=== PATIENT | female | born 1995 | race Caucasian/White ===

== ENCOUNTER 2019-12-26 21:48 | Emergency (ER) | payer BC, SELFPAY ==
--- NOTE | ~2019-12-26 | XR_ITS ---
EXAMINATION: XR chest 1V portable DATE: 12/26/2019 22:45 INDICATION: Cough, fever and shortness of breath TECHNIQUE: frontal view of the chest was obtained. COMPARISON: None FINDINGS: The lungs are clear with no focal airspace opacities, pulmonary edema, pleural effusion or pneumothor ax. The cardiomediastinal silhouette is normal. Visualized bones and soft tissues are unremarkable. IMPRESSION: 1. No acute cardiopulmonary disease. Reviewed, dictated and finalized at location A.
[2019-12-26 21:56] VITALS: BP 119/86; PULSE 95; RESP 18; TEMP 37.1; O2SAT 100
--- NOTE | 2019-12-26 21:58 | ED.FEVER ---
HPI - Fever General Chief Complaint: Fever Stated Complaint: FEVER, IM SICK, COUGH CP Time Seen by Provider: 12/26/19 21:55 History of Present Illness HPI Narrative: She reports cough, fever, SOB, chest pain, nausea, and bosyaches for a few days. Her father had similar symptoms last week and tested negative for COVID-19. Her mother is also here to be seen at this time. No known COVID-19 exposure. Related Data Home Medications Medication Instructions Recorded Confirmed fluticasone furoate-vilanterol INHALATION 12/26/19 12/26/19 [Breo Ellipta] levonorgestrel-ethinyl estrad tablet 12/26/19 [Kurvelo (28)] sertraline mg 12/26/19 Allergies Allergy/AdvReac Type Severity Reaction Status Date / Time No Known Allergies Allergy Verified 12/26/19 21:50 Review of Systems Review of Systems: All systems reviewed & are unremarkable except as noted in HPI and below Constitutional: Constitutional: Reports chills, Reports fatigue and Reports fever(s) ENT: Reports sore throat Cardiovascular: Cardiovascular: Reports chest pain Respiratory: Respiratory: Reports chest congestion, Reports cough and Reports dyspnea Gastrointestinal: Gastrointestinal: Reports diarrhea, Reports nausea and Denies vomiting Genitourinary: Genitourinary: Denies hematuria and Denies dysuria Musculoskeletal: Musculoskeletal: Reports myalgias Neurologic: Reports weakness PMFSH Past Medical History Medical History Anxiety Asthma Migraines Other prophylactic gland removal Social History Social History Smoking status: Former smoker Gender identity (if verbalized by the patient): Female Exam Const: General: healthy appearing, no acute distress and alert Orientation/consciousness: patient oriented x3 HENMT: Head: normal to inspection Throat: posterior oropharynx normal Neck: Neck: normal visual inspection and no lymphadenopathy Chest: Chest palpation & inspection: no tenderness Resp: Effort & Inspection: normal respiratory effort Auscultation: clear to auscultation bilaterally, no rales, no rhonchi and no wheezes Cardio: Jugular venous distension: no JVD Rate: regular rate Rhythm: regular rhythm Heart sounds: no murmurs GI: Inspection: non-distended GI Palp: Yes Soft to palpation and No Tenderness to palpation present (GI) Skin: General skin exam: normal color Neuro: General: patient oriented x3, moves all extremities and CN's II-XI intact bilaterally Speech: normal speech Extrem: General: no edema Psych: Appearance: well kempt Affect: Anxious affect present Course Vital Signs Vital signs: Vital Signs Temperature 37.1 C 12/26/19 21:56 Pulse Rate 95 12/26/19 21:56 Respiratory Rate 18 12/26/19 21:56 Blood Pressure 119/86 12/26/19 21:56 Pulse Oximetry 100 12/26/19 21:56 Temperature 37.1 C 12/26/19 21:56 Pulse Rate 85 12/26/19 23:44 Respiratory Rate 18 12/26/19 23:44 Blood Pressure 115/78 12/26/19 23:44 Pulse Oximetry 98 12/26/19 23:44 MDM - Fever MDM Narrative Medical decision making narrative: Vital signs stable. She likely has a viral URI. Could be COVID-19. Will test. No indication for hospitalisation at this time. Medical Records Attestation: I reviewed the patient's medical records. Lab Data Attestation: I reviewed the patient's lab results. Labs: Lab Results 12/26/19 Range/Units 22:28 SARS-CoV-2 RNA (RT-PCR) Positive A Imaging Data Radiologist's impression: ITS Impressions Chest X-Ray 12/27/19 08:26 IMPRESSION: 1. No acute cardiopulmonary disease. Discharge Plan Discharge Clinical Impression: URI (upper respiratory infection) Patient Disposition: Home, Self-Care Condition: Stable Instructions: Upper Respiratory Infection (ED) Prescriptions: New ondansetron HCl [Zofran] 4 mg tablet 4 mg PO
[2019-12-26 22:04] VITALS: RESP 18
[2019-12-26] MEDS: ONDANSETRON HCL ODT 4 MG TABLET PO (23:09)
[2019-12-26] MEDS: IBUPROFEN 600 MG TABLET PO (23:09)
[2019-12-26 23:44] VITALS: BP 115/78; PULSE 85; RESP 18; O2SAT 98
[2019-12-27 12:13] LABS: SARS-CoV-2 RNA PCR Positive
== END 2019-12-26 23:47 | disposition home or self-care (01) ==
PROVIDERS: Emergency Provider Emergency Medicine
DX: U07.1 COVID-19 (principal); J06.9 Acute upper respiratory infection, unspecified; F41.9 Anxiety disorder, unspecified; J45.909 Unspecified asthma, uncomplicated; Z87.891 Personal history of nicotine dependence
CPT/HCPCS: 71045; 87081; 87635; 87880; 99283; A9270; C9803; U0003

== ENCOUNTER 2020-02-25 13:07 | Emergency (ER) | payer OTHER, MEDICAID, SELFPAY ==
[2020-02-25] VITALS (17 sets, daily range): BP systolic 96–118; BP diastolic 64–74; PULSE 78–107; RESP 13–27; TEMP 36.3; O2SAT 94–100
--- NOTE | ~2020-02-25 | CT_ITS ---
EXAMINATION: CT brain wo con DATE: 02/25/2020 16:23 INDICATION: Syncope. Headache. Head injury. TECHNIQUE: Computed tomography (CT) of the head was performed without intravenous contrast. The mA wa s adjusted according to patient size. Iterative reconstruction technique was employed. The dose-lengt h product was 529.67 mGy-cm. COMPARISON: None FINDINGS: There is no intracranial hemorrhage, acute infarction, or abnormal intracranial mass lesion . The ventricles are normal in size. The mastoid air cells are normal. IMPRESSION: 1. Normal brain. Reviewed, dictated and finalized at location B. IMPRESSION: 1. Normal brain.
--- NOTE | ~2020-02-25 | XR_ITS ---
EXAMINATION: XR chest 1V portable DATE: 02/25/2020 14:38 INDICATION: Shortness of breath. Syncope. TECHNIQUE: A single frontal view of the chest was obtained. COMPARISON: Chest single view 12/27/2019 FINDINGS: The chest demonstrates clear lungs without pneumonia, pleural effusion, or pneumothorax. Th e heart size is normal. IMPRESSION: 1. No acute cardiopulmonary disease. Reviewed, dictated and finalized at location B.
--- NOTE | 2020-02-25 13:13 | ECG_ITS ---
Measurements Intervals [place] Rate: 85 P: 63 AK: 132 QRS: 61 QRSD: 84 T: 33 QT: 348 QTc: 416 Interpretive Statements SINUS RHYTHM NORMAL ECG Electronically Signed On 02-25-2020 13:30:55 CDT by Donovan Kahn D.O.
[2020-02-25 13:33] LABS: Basophils Absolute Auto 0.1 K/mm3 (0.0-0.1); Basophils Percent Auto 0.6 % (0.2-1.2); Eosinophils Absolute Auto 0.2 K/mm3 (0-0.3); Eosinophils Percent Auto 1.8 % (0-4.4); Hematocrit 45.1 % (37.0-47.0); Hemoglobin 15.4 g/dL (12.0-15.0); Immature Granulocyte Absolute 0.05 K/mm3 (0.00-0.031); Immature Granulocyte Percent A 0.4 % (0-0.5); Lymphocytes Percent Auto 17.5 % (18.3-44.2); Mean Corpuscular HGB Conc 34.1 g/dl (32-36); Mean Corpuscular Hemoglobin 31.2 pg (26-34); Mean Corpuscular Volume 91.5 fl (80-100); Mean Platelet Volume 10.8 fl (7.4-10.4); Monocytes Absolute Auto 0.7 K/mm3 (0.1-0.6); Neutrophils Absolute Auto 8.8 K/mm3 (1.3-6.7); Neutrophils Percent Auto 73.7 % (45.5-73.1); Platelet Count Result 288 k/mm3 (150-375); Red Blood Count 4.93 M/mm3 (4.2-5.4); Red Cell Distribution Width 12.8 % (11.5-14.5)
[2020-02-25 13:45] LABS: Potassium 4.1 mmol/L (3.4-5.0)
[2020-02-25 13:49] LABS: Anion Gap 9 mmol/L (8-16); Blood Urea Nitrogen 14 mg/dL (7-17); Calcium 9.4 mg/dL (8.4-10.2); Carbon Dioxide 25 mmol/L (22-30); Chloride 104 mmol/L (98-107); Estimated CRCL calculation 119 ml/min; Estimated Glomerular Filt Rate > 60; Glucose 106 mg/dL (65-105); Sodium 138 mmol/L (137-145)
--- NOTE | 2020-02-25 14:27 | ED.SYNCOPE ---
HPI - Syncope General Chief Complaint: Syncope Stated Complaint: SYNCOPAL EPISODE Time Seen by Provider: 02/25/20 13:27 Source: patient and family Mode of arrival: ambulatory Limitations: no limitations History of Present Illness HPI narrative: This patient is a 24 year old female who presents for evaluation of syncopal episode. Patient states she was making food when she developed dizziness. Shortly after she reports nausea so she sat down. She continue to have dizziness and nausea so she went to the restroom. She states she fell over and passed out. She woke up with yellow emesis in the toilet . She called her family. She states she continue to have some dizziness an tunnel vision when ever she would try to stand up. She denies history syncopal episodes. She denies diarrhea, chest pain, abdominal pain. She was diagnosed with COVID 6 weeks ago and reports worsening sob over the past couple of weeks. She reports mild headache that is slowing resolving now. Related Data Home Medications Medication Instructions Recorded Confirmed fluticasone furoate-vilanterol INHALATION 12/26/19 12/26/19 [Breo Ellipta] sertraline mg 12/26/19 Allergies Allergy/AdvReac Type Severity Reaction Status Date / Time No Known Allergies Allergy Verified 02/25/20 13:09 Review of Systems Review of Systems: All systems reviewed & are unremarkable except as noted in HPI and below Constitutional: Constitutional: Denies chills and Denies fever(s) Eyes: Eyes: Reports change in vision (tunnel vision) ENT: Reports dizziness Cardiovascular: Cardiovascular: Denies chest pain and Denies rapid heart rate Respiratory: Respiratory: Denies cough and Reports dyspnea Gastrointestinal: Gastrointestinal: Denies abdominal pain, Denies diarrhea, Reports nausea and Reports vomiting Neurologic: Reports syncope and Reports headache(s) [facility] Past Medical History Medical History (Updated 02/25/20 @ 16:44 by Rosa Elena Aaron MD) Anxiety Asthma Migraines Other prophylactic gland removal Social History Social History Smoking status: Former smoker Gender identity (if verbalized by the patient): Female Exam Narrative: Exam Narrative: GENERAL: Well-appearing, well-nourished, and in no acute distress. HEAD: Normocephalic, atraumatic EYES: PERRLA and EOMI, conjunctiva clear without discharge EARS: TM's clear bilaterally without erythema or dullness NOSE: Nares clear, no rhinorrhea or epistaxis THROAT:Mucous membranes moist, Oropharynx normal without erythema, exudate, peritonsillar swelling or fluctuance NECK: Supple, without lymphadenopathy or mass RESPIRATORY: No respiratory distress, Airway patent, Respirations non-labored, Clear to auscultation without rales, rhonchi or wheeze HEART: Regular rate and rhythm. No murmur heard. Normal peripheral pulses. ABDOMEN: Soft, nontender, nondistended, normal active bowel sounds. No masses. No rebound or guarding, No organomegaly. EXTREMITIES: No edema, normal strength with full range of motion. SKIN: Warm, dry, normal color without rash NEURO: Alert and oriented x3. CN 2-12 grossly intact. No focal deficits. PSYCH: Normal mood and affect. Course Reevaluation(s) Reevaluation #1: I have discussed with patient that no acute findings found. She reports dizziness and nausea have resolved. She likely had vasovagal syncope. Date: 02/25/20 Time: 16:42 Vital Signs Vital signs: Vital Signs Temperature 97.4 F L 02/25/20 13:10 Pulse Rate 96 02/25/20 13:10 Respiratory Rate 18 02/25/20 13:10 Blood Pressure 118/64 02/25/20 13:10 Pulse Oximetry 100 02/25/20 13:10 Temperature 97.4 F L 02/25/20 13:10 Pulse Rate 79 02/25/20 16:43 Respiratory Rate 14 02/25/20 16:43 Blood Pressure 105/72 02/25/20 16:43 Pulse Oximetry 94 02/25/20 16:43 MDM - Syncope Lab Data Attestation: I reviewed the patient's lab r
[2020-02-25] MEDS: ONDANSETRON INJ 4 MG/2 ML VIAL IV PUSH (14:47)
[2020-02-25] MEDS: LACTATED RINGERS 1,000 ML 999 ML IV CONT (14:48)
[2020-02-25 14:58] LABS: Add Urine Microscopic? YES; Appearance Urine Cloudy (Clear); Bacteria Urine Trace /hpf; Bilirubin Urine Negative (Negative); Blood Urine 1+ (Negative); Color Urine Yellow (Yellow); Glucose Urine UA Negative (Negative); Ketones Urine Negative (Negative); Leukocyte Esterase Ur Negative LEU/UL (Negative); Mucus Urine Moderate /lpf; Nitrate Urine Negative (Negative); Protein Urine 1+ mg/dL (Negative); RBC Urine 0-2 /hpf (0-2); Specific Grav Ur 1.023 (1.001-1.035); Squamous Epithelial Cell Urine Moderate /hpf (Few); Urobilinogen Urine Negative mg/dL (<2.0); WBC Urine 0-3 /hpf
[2020-02-25 15:23] LABS: Magnesium 1.9 mg/dL (1.6-2.3)
[2020-02-25 15:24] LABS: D Dimer 0.27 ug/mL (<0.48)
[2020-02-25 15:34] LABS: Troponin I < 0.012 ng/mL (0.000-0.034)
== END 2020-02-25 17:12 | disposition home or self-care (01) ==
PROVIDERS: Family Medicine; Emergency Provider General Practice; PCP Physician Assistant
DX: R55 Syncope and collapse (principal); S09.90XA Unspecified injury of head, initial encounter; F41.9 Anxiety disorder, unspecified; J45.909 Unspecified asthma, uncomplicated; Z87.891 Personal history of nicotine dependence; X58.XXXA Exposure to other specified factors, initial encounter; Z86.19 Personal history of other infectious and parasitic diseases
CPT/HCPCS: 36415; 70450; 71045; 80048; 81001; 81025; 83735; 84484; 85025; 85380; 93005; 96361; 96374; 99284; J2405; J7120

== ENCOUNTER 2021-09-25 13:07 | Emergency (ER) | payer OTHER, MEDICAID, SELFPAY ==
[2021-09-25 13:09] VITALS: BP 111/74; PULSE 89; RESP 16; TEMP 36.6; O2SAT 99
[2021-09-25] MEDS: diphenhydrAMINE HCl INJ 50 MG/ML VIAL 25 MG IV PUSH (14:08)
[2021-09-25] MEDS: SODIUM CHLORIDE 0.9% IV 1,000 ML 999 ML IV CONT (14:09)
--- NOTE | 2021-09-25 14:10 | ED.HA ---
HPI - Headache General Chief Complaint: Headache <DAYANA Alcaraz Last Filed: 09/25/21 17:27> Stated Complaint: migraine <DAYANA Alcaraz Last Filed: 09/25/21 17:27> Time Seen by Provider: 09/25/21 13:14 <DAYANA Alcaraz Last Filed: 09/25/21 17:27> History of Present Illness HPI Narrative: Patient is a 26-year-old female with a history of migraine headaches who presents emergency department for her typical migraine headache over the past 2 days. Patient states the headache came on gradually as a tension headache, and has developed now into her usual migraine. The pain became worse today, which prompted ED visit. She states it is present over her left oriental orthodox, is pulsatile in nature, and is associated with some blurry vision on the left eye and nausea but no vomiting. She denies any new symptoms for her. The headache is worse with light. She tried Bubital without relief of her symptoms. No head injury, loss of consciousness, slurred speech, facial droop, fevers. <DAYANA Alcaraz Last Filed: 09/25/21 17:27> Related Data Home Medications: Home Medications Medication Instructions Recorded Confirmed fluticasone furoate-vilanterol INHALATION 12/26/19 12/26/19 [Breo Ellipta] sertraline mg 12/26/19 <DAYANA Alcaraz Last Filed: 09/25/21 17:27> Allergies/Adverse Reactions: Allergies Allergy/AdvReac Type Severity Reaction Status Date / Time No Known Allergies Allergy Verified 02/25/20 13:09 <DAYANA Alcaraz Last Filed: 09/25/21 17:27> Review of Systems Review of Systems: Gen: Denies fevers or chills Eyes: Reports blurry vision on the left. ENT: Denies congestion Respiratory: Denies shortness of breath or cough CV: Denies chest pain or palpitations GI: Denies abdominal pain nausea, emesis or diarrhea denies burning, urgency, frequency or hematuria Musculoskeletal: Denies back pain or muscle pain Neuro: Reports headache. Denies numbness, tingling, weakness or focal weakness Skin: Denies rash Except as documented, all other systems reviewed and negative <Molly Rosado PA-C - Last Filed: 09/25/21 17:27> All systems reviewed & are unremarkable except as noted in HPI and below <Molly Rosado PA-C - Last Filed: 09/25/21 17:27> [facility] Past Medical History Medical History: Medical History (Updated 09/25/21 @ 14:51 by Molly Rosado PA-C) Anxiety Asthma Migraines Other prophylactic gland removal <Molly Rosado PA-C - Last Filed: 09/25/21 17:27> Social History Social History: Social History Smoking status: Former smoker Gender identity (if verbalized by the patient): Female <Molly Rosado PA-C - Last Filed: 09/25/21 17:27> Exam Narrative: APPEARANCE: Uncomfortable appearing, resting in a dark room. Head: normocephalic and atraumatic. EYES: PERRLA/EOMI, conjunctivae clear NOSE: No nasal drainage EARS: External ear normal in appearance THROAT: Oropharynx is clear. Mucous membranes are moist. NECK: Supple. No adenopathy, no masses. RESPIRATORY: Airway patent, respirations nonlabored. Clear to auscultation bilaterally, no rales, rhonchi, wheezing. CARDIOVASCULAR: Regular rate and rhythm without murmurs, rubs, or gallops. ABDOMINAL: Normoactive bowel sounds. Soft, nontender, nondistended. No rebound tenderness or guarding. MUSCULOSKELETAL: Extremities are warm and well-perfused. Moves all extremities well. No edema. NEURO: Cranial nerves II through XII intact. Normal speech. No focal neurologic deficits. [place]-at-jpmo normal, kgty-of-ubxs normal. SKIN: Skin is warm and dry. No rashes. PSYCHIATRIC: Normal affect/mood. <Molly Rosado PA-C - Last Filed: 09/25/21 17:27> Course INDIVIDUAL PENSION CONSULTANT/PA Physician Supervision I did not see this patient nor was the care plan discussed
[2021-09-25] MEDS: PROCHLORPERAZINE EDISYLATE 10 MG/2 ML VIAL IV PUSH (14:11)
[2021-09-25 15:13] VITALS: BP 114/72; PULSE 87; RESP 18; O2SAT 99
== END 2021-09-25 15:14 | disposition home or self-care (01) ==
PROVIDERS: Emergency Provider Emergency Medicine
DX: G43.909 Migraine, unspecified, not intractable, without status migrainosus (principal); J45.909 Unspecified asthma, uncomplicated; F41.9 Anxiety disorder, unspecified; Z87.891 Personal history of nicotine dependence
CPT/HCPCS: 96361; 96374; 96375; 99284; J0780; J1200; J7030

== ENCOUNTER 2022-01-07 11:19 | Emergency (ER) | payer OTHER, MEDICAID, SELFPAY ==
--- NOTE | ~2022-01-07 | CT_ITS ---
EXAMINATION: CT abdomen pelvis w con DATE: 01/07/2022 13:55 INDICATION: Abdominal pain TECHNIQUE: Computed tomography (CT) of the abdomen and pelvis was performed with 100 mL Omnipaque-300 intravenous contrast. Automated exposure control and iterative reconstruction technique were employe d. The dose-length product was 541.31 mGy-cm. COMPARISON: None FINDINGS: Lung bases are clear. Visualized inferior heart is normal. No pericardial or pleural effusion. Liver, gallbladder, spleen, pancreas, bilateral adrenal glands and kidneys are normal. Bowels including the appendix are normal. Bladder, anteverted uterus and bilateral adnexa are unremarkable. Ring shaped p essary in the vaginal vault. No free intraperitoneal gas or fluid. No pathologically enlarged abdomin al or pelvic lymphadenopathy. Mild thoracolumbar dextrocurvature with mild spondylosis. IMPRESSION: 1. No acute intra-abdominal/pelvic process. Reviewed, dictated and finalized at location A.
[2022-01-07 11:33] VITALS: BP 125/82; PULSE 97; RESP 16; TEMP 36.9; O2SAT 99
[2022-01-07 12:16] LABS: Appearance Urine Cloudy (Clear); Bilirubin Urine Negative (Negative); Blood Urine 3+ (Negative); Color Urine Yellow (Yellow); Glucose Urine UA Negative (Negative); Ketones Urine Negative (Negative); Leukocyte Esterase Ur 1+ LEU/UL (Negative); Nitrate Urine Positive (Negative); Protein Urine 1+ mg/dL (Negative); Specific Grav Ur 1.025 (1.001-1.035); Urobilinogen Urine 0.2 mg/dL (<2.0); pH Urine 5.5 (5.0-9.0)
[2022-01-07 12:20] LABS: Add Urine Microscopic? YES; Bacteria Urine Trace /hpf; Mucus Urine Rare /lpf; RBC Urine >75 /hpf (0-2); Squamous Epithelial Cell Urine Many /hpf (Few); WBC Clumps Urine Present /HPF; WBC Urine >75 /hpf
[2022-01-07 12:52] LABS: Basophils Absolute Auto 0.1 K/mm3 (0.0-0.1); Basophils Percent Auto 0.6 % (0.2-1.2); Eosinophils Absolute Auto 0.3 K/mm3 (0-0.3); Eosinophils Percent Auto 2.3 % (0-4.4); Hemoglobin 15.5 g/dL (12.0-15.0); Immature Granulocyte Absolute 0.05 K/mm3 (0.00-0.031); Immature Granulocyte Percent A 0.4 % (0-0.5); Lymphocytes Absolute Auto 2.75 K/mm3 (0.9-3.2); Lymphocytes Percent Auto 19.9 % (18.3-44.2); Mean Corpuscular HGB Conc 33.7 g/dl (32-36); Mean Corpuscular Hemoglobin 30.9 pg (26-34); Mean Corpuscular Volume 91.8 fl (80-100); Mean Platelet Volume 10.2 fl (7.4-10.4); Monocytes Absolute Auto 0.9 K/mm3 (0.1-0.6); Monocytes Percent Auto 6.2 % (2.6-8.5); Neutrophils Absolute Auto 9.8 K/mm3 (1.3-6.7); Neutrophils Percent Auto 70.6 % (45.5-73.1); Platelet Count Result 319 k/mm3 (150-375); Red Blood Count 5.01 M/mm3 (4.2-5.4); Red Cell Distribution Width 13.2 % (11.5-14.5); White Blood Count 13.9 K/mm3 (4.5-10.0)
[2022-01-07 13:00] LABS: Alanine Aminotransferase 24 U/L (6-35); Albumin Level 4.3 g/dL (3.5-5.1); Alkaline Phosphatase 77 U/L (38-126); Anion Gap 9 mmol/L (8-16); Aspartate Amino Transferase 22 U/L (14-36); Bilirubin,Total 0.5 mg/dL (0.2-1.3); Blood Urea Nitrogen 15 mg/dL (7-17); Calcium 9.1 mg/dL (8.4-10.2); Carbon Dioxide 26 mmol/L (22-30); Chloride 102 mmol/L (98-107); Estimated CRCL calculation 82 ml/min; Estimated Glomerular Filt Rate > 60; Glucose 87 mg/dL (65-110); Lipase 74 U/L (23-300); Potassium 3.8 mmol/L (3.4-5.0); Sodium 137 mmol/L (137-145)
[2022-01-07] MEDS: KETOROLAC 30 MG/ML VIAL (*BKC) IV PUSH (13:37)
[2022-01-07] MEDS: ONDANSETRON INJ 4 MG/2 ML VIAL IV PUSH (13:37)
[2022-01-07] MEDS: SODIUM CHLORIDE 0.9% IV 1,000 ML 999 ML IV CONT (14:06)
--- NOTE | 2022-01-07 14:39 | ED.GENADULT ---
HPI - General Adult General Chief complaint: Back Pain/Injury Stated complaint: back, abd pain Time Seen by Provider: 01/07/22 11:54 Source: RN notes reviewed History of Present Illness HPI narrative: Patient presents emergency department from home for abdominal pain. Patient states that symptoms began this morning states she has pain in the lower abdomen that radiates to the right flank pain is described as sharp and stabbing in nature states is associated with dysuria she denies any fevers or chills does note that she has nausea but denies any vomiting or diarrhea. States she has not taking thing for the symptoms today Related Data Home Medications Medication Instructions Recorded Confirmed fluticasone furoate 200 inhalation 12/26/19 12/26/19 mcg-vilanterol 25 mcg/dose inhalation powder (Breo Ellipta) sertraline 100 mg tablet mg 12/26/19 Allergies Allergy/AdvReac Type Severity Reaction Status Date / Time No Known Allergies Allergy Verified 02/25/20 13:09 Review of Systems Review of Systems: Gen.: Denies fevers or chills ENT: Denies congestion Respiratory: Denies shortness of breath or cough CV: Denies chest pain or palpitations GI: see HPI reports dysuria Musculoskeletal: Denies back pain or muscle pain Neuro: Denies numbness, tingling, weakness or focal weakness Skin: Denies rash Except as documented, all other systems reviewed and negative [facility] Past Medical History Medical History (Updated 01/07/22 @ 14:42 by Jose Gonzalez DO) Anxiety Asthma Migraines Other prophylactic gland removal Social History Social History Smoking status: Former smoker Gender identity (if verbalized by the patient): Female Exam Narrative: APPEARANCE: No acute distress, nontoxic, resting in bed HEENT: Normocephalic, atraumatic, OMM RESPIRATORY: No respiratory distress, clear to auscultation bilaterally with no rhonchi wheezing or rales CARDIOVASCULAR: RRR s murmur ABDOMINAL: Soft nondistended tender to palpation in right lower quadrant and left lower quadrant no tenderness right upper quadrant and left upper quadrant no rebound or guarding, right flank tenderness MUSCULOSKELETAl: Moves all extremities. No clubbing, cyanosis or edema. NEURO: Awake and alert. Following commands, speech normal, no focal deficits SKIN:: Warm, dry. Normal Color PSYCHIATRIC: Normal affect/mood Course Course Emergency Course: Patient states that they are feeling much better at this time. States abdominal pain has resolved. Repeat abdominal exam shows the patient's abdomen to be soft and nontender. Discussed with patient results of workup and diagnosis. Discussed need for follow-up with primary care physician, reasons to return to the emergency department in proper use of medication. Patient understands and agrees to current treatment plan Vital Signs Vital signs: Vital Signs Temperature 98.5 F 01/07/22 11:33 Pulse Rate 97 01/07/22 11:33 Respiratory Rate 16 01/07/22 11:33 Blood Pressure 125/82 01/07/22 11:33 Pulse Oximetry 99 01/07/22 11:33 Oxygen Delivery Room Air 01/07/22 11:33 Temperature 98.5 F 01/07/22 11:33 Pulse Rate 97 01/07/22 11:33 Respiratory Rate 16 01/07/22 11:33 Blood Pressure 125/82 01/07/22 11:33 Pulse Oximetry 99 01/07/22 11:33 Oxygen Delivery Room Air 01/07/22 11:33 Medical Decision Making MDM Narrative Medical decision making narrative: Patient's abdomen is soft without significant pain or signs of surgical abdomen on serial exams. Lab and x-ray evaluations are reviewed and patient is felt to be a reasonable candidate for outpatient management. Patient was instructed as to limitations of x-ray and laboratory evaluation and encouraged to return to ED or primary physician for repeat exam in 12 hours if continued or worsening pain Vital Signs Vital Signs: Vital Signs Temperature 98.5 F 01/07/22 11:3
[2022-01-07 15:07] VITALS: BP 126/88; PULSE 83; RESP 16; O2SAT 98
== END 2022-01-07 15:08 | disposition home or self-care (01) ==
PROVIDERS: Emergency Provider Emergency Medicine; PCP Physician Assistant
DX: N39.0 Urinary tract infection, site not specified (principal); R10.30 Lower abdominal pain, unspecified; F41.9 Anxiety disorder, unspecified; J45.909 Unspecified asthma, uncomplicated
CPT/HCPCS: 36415; 74177; 80053; 81001; 81025; 83690; 85025; 87077; 87086; 87186; 96374; 96375; 99284; J0696; J1885; J2405; J7030; Q9967

== ENCOUNTER 2022-01-16 19:57 | Emergency (ER) | payer OTHER, MEDICAID, SELFPAY ==
--- NOTE | ~2022-01-16 | CT_ITS ---
EXAMINATION: CT abdomen pelvis w con DATE: 01/16/2022 22:52 INDICATION: RLQ pain TECHNIQUE: Computed tomography (CT) of the abdomen and pelvis was performed with 100 mL Omnipaque-350 intravenous contrast. Automated exposure control and iterative reconstruction technique were employe d. The dose-length product was 521.21 mGy-cm. COMPARISON: 01/07/2022. FINDINGS: Lower thorax: Mild left basilar scarring and bilateral dependent atelectasis. Liver: Normal. Biliary/Gallbladder: Partially collapsed. No bile duct dilation. Pancreas: No mass or duct dilation. Spleen: Normal. Adrenals:No mass. Kidneys: No suspicious mass, stone, or hydronephrosis. Subcentimeter left midpole hypodensity, too sm all to characterize but most likely represent cysts GI tract: Mild distal esophageal and gastric wall edema as can be seen with esophagitis/gastritis. No small or large bowel dilation. Normal appendix. Mesentery/Peritoneum: No ascites, mass, or free air. Retroperitoneum: No mass. Pelvis: Pelvic organs are within normal limits. Soft Tissues: Soft tissues and body wall unremarkable. Bones: No acute osseous finding. IMPRESSION: No acute abdominopelvic process. Reviewed, dictated and finalized at location K.
[2022-01-16 19:59] VITALS: BP 126/82; PULSE 106; RESP 16; TEMP 36.1; O2SAT 100
[2022-01-16 20:14] LABS: Basophils Absolute Auto 0.1 K/mm3 (0.0-0.1); Basophils Percent Auto 1.1 % (0.2-1.2); Eosinophils Absolute Auto 0.5 K/mm3 (0-0.3); Eosinophils Percent Auto 5.2 % (0-4.4); Hematocrit 46.8 % (37.0-47.0); Hemoglobin 15.6 g/dL (12.0-15.0); Immature Granulocyte Absolute 0.03 K/mm3 (0.00-0.031); Immature Granulocyte Percent A 0.3 % (0-0.5); Lymphocytes Absolute Auto 2.82 K/mm3 (0.9-3.2); Lymphocytes Percent Auto 29.9 % (18.3-44.2); Mean Corpuscular HGB Conc 33.3 g/dl (32-36); Mean Corpuscular Hemoglobin 30.4 pg (26-34); Mean Corpuscular Volume 91.1 fl (80-100); Mean Platelet Volume 9.8 fl (7.4-10.4); Monocytes Absolute Auto 1.1 K/mm3 (0.1-0.6); Monocytes Percent Auto 11.6 % (2.6-8.5); Neutrophils Absolute Auto 4.9 K/mm3 (1.3-6.7); Neutrophils Percent Auto 51.9 % (45.5-73.1); Platelet Count Result 328 k/mm3 (150-375); Red Blood Count 5.14 M/mm3 (4.2-5.4); Red Cell Distribution Width 13.1 % (11.5-14.5); White Blood Count 9.4 K/mm3 (4.5-10.0)
[2022-01-16 20:23] LABS: Alanine Aminotransferase 27 U/L (6-35); Albumin Level 4.2 g/dL (3.5-5.1); Alkaline Phosphatase 81 U/L (38-126); Anion Gap 6 mmol/L (8-16); Aspartate Amino Transferase 26 U/L (14-36); Bilirubin,Total 0.3 mg/dL (0.2-1.3); Blood Urea Nitrogen 11 mg/dL (7-17); Calcium 8.8 mg/dL (8.4-10.2); Carbon Dioxide 23 mmol/L (22-30); Chloride 103 mmol/L (98-107); Estimated CRCL calculation 82 ml/min; Estimated Glomerular Filt Rate > 60; Glucose 94 mg/dL (65-110); Lipase 100 U/L (23-300); Potassium 3.7 mmol/L (3.4-5.0); Sodium 132 mmol/L (137-145)
[2022-01-16 22:39] LABS: Appearance Urine Slightly Cloudy (Clear); Bilirubin Urine 1+ (Negative); Blood Urine Trace-lysed (Negative); Glucose Urine UA Negative (Negative); Ketones Urine Negative (Negative); Leukocyte Esterase Ur Negative LEU/UL (Negative); Nitrate Urine Negative (Negative); Protein Urine Negative (Negative); Specific Grav Ur >= 1.030 (1.001-1.035)
[2022-01-16 22:43] LABS: Bacteria Urine Trace /hpf; Mucus Urine Few /lpf; Squamous Epithelial Cell Urine Many /hpf (Few); WBC Urine 0-3 /hpf
[2022-01-16 22:44] LABS: Add Urine Microscopic? YES; Color Urine Dark Yellow (Yellow)
--- NOTE | 2022-01-16 23:47 | ED.ABDPAIN ---
HPI - Abdominal Pain General Chief Complaint: Abdominal Pain Stated Complaint: ABD pain, GI bleed Time Seen by Provider: 01/16/22 21:23 History of Present Illness HPI narrative: Patient is a 26-year-old female who presents ER with periumbilical pain. Ongoing of the last 24 hours. Colicky in nature. Worse with eating. Better with rest. Reports she has had 3 episodes of diarrhea over the last 24 hours. She has had some bright red blood in it. She also reports vomiting earlier this evening where she vomited three quarter sized pieces of blood. No fevers or chills or sweats. She is not on blood thinners. Related Data Home Medications Medication Instructions Recorded Confirmed fluticasone furoate 200 inhalation 12/26/19 12/26/19 mcg-vilanterol 25 mcg/dose inhalation powder (Breo Ellipta) sertraline 100 mg tablet mg 12/26/19 Allergies Allergy/AdvReac Type Severity Reaction Status Date / Time No Known Allergies Allergy Verified 01/16/22 21:30 Review of Systems Review of Systems: All systems reviewed & are unremarkable except as noted in HPI and below Constitutional: Constitutional: Denies chills, Denies fatigue and Denies fever(s) Cardiovascular: Cardiovascular: Denies chest pain Respiratory: Respiratory: Denies cough and Denies dyspnea Gastrointestinal: Gastrointestinal: Reports abdominal pain, Reports diarrhea, Reports nausea and Reports vomiting Genitourinary: Genitourinary: Denies nocturia and Denies dysuria PMFSH Past Medical History Medical History (Updated 01/16/22 @ 23:49 by David Frausto MD) Anxiety Asthma Migraines Other prophylactic gland removal Social History Social History Smoking status: Former smoker Gender identity (if verbalized by the patient): Female Exam Narrative: GENERAL: Well-appearing, well-nourished, and in no acute distress. HEAD: Normocephalic, atraumatic. EYES: EOMI. CHEST: Clear to auscultation. No respiratory distress. HEART: Regular rate and rhythm. Normal peripheral pulses. ABDOMEN: Soft, patient reports right lower quadrant pain but no rebound or guarding nondistended. Normal-appearing rectum. Digital rectal exam reveals pink blood that is guaiac positive. EXTREMITIES: Normal range of motion. No edema. SKIN: Warm, dry, no rash. NEURO: Alert and oriented x3. PSYCH: Normal mood and affect. Course Course Emergency Course: Patient reports she thinks she had a bad salad before symptom onset. Patient may have had some colitis causing some bleeding. She does have gastritis on her imaging study. She will be started on Protonix twice daily. Recommend follow-up with PCP and GI and patient verbalized understanding. No hypertension. Hemoglobin stable. Patient has been on 10 days of Bactrim which could be irritating her stomach. Vital Signs Vital signs: Vital Signs Temperature 97.0 F L 01/16/22 19:59 Pulse Rate 106 H 01/16/22 19:59 Respiratory Rate 16 01/16/22 19:59 Blood Pressure 126/82 01/16/22 19:59 Pulse Oximetry 100 01/16/22 19:59 Temperature 97.0 F L 01/16/22 19:59 Pulse Rate 106 H 01/16/22 19:59 Respiratory Rate 16 01/16/22 19:59 Blood Pressure 126/82 01/16/22 19:59 Pulse Oximetry 100 01/16/22 19:59 MDM - Abdominal Pain Lab Data Result diagrams: 01/16/22 20:07 01/16/22 20:07 Labs: Lab Results 01/16/22 01/16/22 01/16/22 Range/Units 20:07 20:07 22:32 WBC 9.4 (4.5-10.0) K/mm3 RBC 5.14 (4.2-5.4) M/mm3 Hgb 15.6 H (12.0-15.0) g/dL Hct 46.8 (37.0-47.0) % MCV 91.1 (80-100) fl MCH 30.4 (26-34) pg MCHC 33.3 (32-36) g/dl RDW 13.1 (11.5-14.5) % Plt Count 328 (150-375) k/mm3 MPV 9.8 (7.4-10.4) fl Immature Gran % (Auto) 0.3 (0-0.5) % Neut % (Auto) 51.9 (45.5-73.1) % Lymph % (Auto) 29.9 (18.3-44.2) % [place] % (Auto) 11.6 H (2.6-8.5) % Eos % (Auto
[2022-01-16] MEDS: PANTOPRAZOLE SODIUM IV 40 MG VIAL IV PUSH (23:54)
[2022-01-16] MEDS: DICYCLOMINE HCL 10 MG CAPSULE 20 MG PO (23:54)
[2022-01-17 00:15] VITALS: PULSE 94; RESP 16; O2SAT 98
== END 2022-01-17 00:18 | disposition home or self-care (01) ==
PROVIDERS: Emergency Medicine; Emergency Provider Emergency Medicine; PCP Physician Assistant
DX: K29.70 Gastritis, unspecified, without bleeding (principal); K62.5 Hemorrhage of anus and rectum; J45.909 Unspecified asthma, uncomplicated; F41.9 Anxiety disorder, unspecified; Z87.891 Personal history of nicotine dependence
CPT/HCPCS: 36415; 74177; 80053; 81001; 81025; 83690; 85025; 96374; 99284; A9270; C9113; Q9967

== ENCOUNTER 2022-06-15 13:39 | Emergency (ER) | payer MEDICAID, SELFPAY ==
[2022-06-15 13:58] VITALS: BP 118/86; PULSE 83; RESP 16; TEMP 36.8; O2SAT 99
--- NOTE | 2022-06-15 14:21 | ED.EAR ---
HPI - Ear Problem General Chief complaint: Ear Stated complaint: rt ear inf Time Seen by Provider: 06/15/22 14:21 Source: patient, RN notes reviewed and old records reviewed Mode of arrival: ambulatory Limitations: no limitations History of Present Illness HPI Narrative: 27-year-old female presents to the [facility] with complaints of right ear pain. Recently diagnosed with a sinus infection and was on amoxicillin Has been using Q-tips to clean out her ear. Related Data Home Medications Medication Instructions Recorded Confirmed fluticasone furoate 200 1 inh inhalation DAILY 12/26/19 06/15/22 mcg-vilanterol 25 mcg/dose inhalation powder (Breo Ellipta) sertraline 100 mg tablet 100 mg PO DAILY 12/26/19 06/15/22 etonogestrel 0.12 mg-ethinyl 1 vag ring vaginal DAILY 06/15/22 06/15/22 estradiol 0.015 mg/24 hr vaginal ring (EluRyng) Allergies Allergy/AdvReac Type Severity Reaction Status Date / Time No Known Allergies Allergy Verified 06/15/22 13:43 Review of Systems Review of Systems: All systems reviewed & are unremarkable except as noted in HPI and below Constitutional: Constitutional: Reports no additional constitutional complaints Eyes: Eyes: Reports no additional eye complaints ENT: Reports as per HPI and Reports otalgia (Right ear) Cardiovascular: Cardiovascular: Reports no additional cardiovascular complaints, Denies chest pain and Denies dyspnea Respiratory: Respiratory: Reports no additional respiratory complaints, Denies chest congestion, Denies cough and Denies dyspnea Gastrointestinal: Gastrointestinal: Reports no additional gastrointestinal complaints, Denies abdominal pain, Denies nausea and Denies vomiting Musculoskeletal: Musculoskeletal: Reports no additional musculoskeletal complaints Integumentary/Breasts: Skin/Breast: Reports system reviewed and no additional complaints, except as docu Neurologic: Reports system reviewed and no additional complaints, except as documented Psychiatric: Psychiatric: Reports no additional psychiatric complaints Allergic/Immunologic: Allergic/Immunologic: Reports no additional allergic/immunologic complaints PMFSH Past Medical History Medical History (Updated 06/16/22 @ 16:32 by Viktoria Perera APRN) Anxiety Asthma Migraines Other prophylactic gland removal Social History Social History Smoking status: Former smoker Living arrangements: with family Gender identity (if verbalized by the patient): Female Comments At the time of my signature, I reviewed and agree with the nursing past medical, surgical, social, and family history. There is no relevant family history pertinent to the patient complaint. Exam Const: General: cooperative, healthy appearing, comfortable, no acute distress, well developed, alert and well nourished Nutritional Appearance: well nourished Orientation/consciousness: patient oriented x3 Limitations: no limitations HENMT: Head: normal to inspection Ears: hearing grossly normal bilaterally, external ears normal, TM's normal bilaterally and Abnormal EAC present erythema on the right, edema on the right, EAC tenderness on the right and other (Abrasion noted to the lower aspect of the ear canal was surrounding erythema); no cerumen impaction and no excessive cerumen Face/Nose/Sinus: Normal external nose present, Normal nares present, Normal nasal mucous membranes and turbinates present and normal facial exam Face and sinus: normal facial exam Mouth: Yes Normal oral and palatal mucosa present, Yes lip normal and Yes moist mucous membranes Throat: posterior oropharynx normal and uvula midline Eyes: General: appearance normal, both eyes and all related structures Alignment and Position: alignment normal Periorbital: periorbital findings normal Conjunctivae: conjunctivae normal Pupils: Equal, round and reactive pupils present EOM: EOMs intact bilaterally Neck:
== END 2022-06-15 14:56 | disposition home or self-care (01) ==
PROVIDERS: Emergency Provider Nurse Practitioner
DX: S00.411A Abrasion of right ear, initial encounter (principal); L08.9 Local infection of the skin and subcutaneous tissue, unspecified; X58.XXXA Exposure to other specified factors, initial encounter; J45.909 Unspecified asthma, uncomplicated; Z87.891 Personal history of nicotine dependence; F41.9 Anxiety disorder, unspecified
CPT/HCPCS: 87081; 87880; 99213; G0463

== ENCOUNTER 2022-10-14 15:37 | Emergency (ER) | payer OTHER, SELFPAY ==
[2022-10-14 15:49] VITALS: BP 146/85; PULSE 127; RESP 16; TEMP 36.6; O2SAT 99
--- NOTE | 2022-10-14 15:53 | ED.URI ---
HPI - URI/Sore Throat General Chief Complaint: Upper Respiratory Infection Stated Complaint: Sore Throat Time Seen by Provider: 10/14/22 16:00 History of Present Illness HPI Narrative: 27 y/o female presented for c/o sore throat, sinus congestion and pressure, and right jaw pain for about 3 days. Endorses temp up to 100.8. Reports painful swallow, states she has to almost puree her food in order to swallow. Was seen by pcp last week and tested negative for covid flu and strep. Taking Motrin for symptoms. Denies sick contacts. Denies cough, sob, wheezing, n/v/d. Endorses new sexual partner and was recently treated for yeast infection. Related Data Home Medications Medication Instructions Recorded Confirmed fluticasone furoate 200 1 inh inhalation DAILY 12/26/19 10/14/22 mcg-vilanterol 25 mcg/dose inhalation powder (Breo Ellipta) etonogestrel 0.12 mg-ethinyl 1 vag ring vaginal DAILY 06/15/22 10/14/22 estradiol 0.015 mg/24 hr vaginal ring (EluRyng) sertraline 100 mg tablet 150 mg 10/14/22 Allergies Allergy/AdvReac Type Severity Reaction Status Date / Time No Known Allergies Allergy Verified 10/14/22 15:46 Review of Systems Review of Systems: CONSTITUTIONAL: Reports fever EYES: Denies visual changes, redness, or discharge. ENT: Reports rhinorrhea, congestion, sore throat. CARDIOVASCULAR: Denies chest pain, palpitations, or edema. RESPIRATORY: Denies dyspnea. GASTROINTESTINAL: Denies abdominal pain, nausea, vomiting, or diarrhea. SKIN: Denies rash, itching, or wounds. MUSCULOSKELETAL: Denies back pain, joint pain, or myalgia. NEUROLOGIC: Denies headache [facility] Past Medical History Medical History (Updated 10/14/22 @ 16:17 by Suzanna Francisco APRN) Anxiety Asthma Migraines Other prophylactic gland removal Social History Social History Smoking status: Former smoker Living arrangements: with family Gender identity (if verbalized by the patient): Female Exam Narrative: GENERAL: mildly ill-appearing, no acute distress. EYES: conjunctivae clear ENT: Mucous membranes moist. TMs pearly otto with normal light reflex bilaterally; no tragal tenderness. Oropharynx erythematous, Tonsils enlarged touching uvula, symmetrical, with exudate. Mild hot potato voice. No drooling, no hoarseness, no trismus, uvula midline. No tripod positioning, or soft palate swelling. NECK: Supple. Bilateral anterior cervical lymphadenopathy CHEST: Clear to auscultation, breath sounds equal. No respiratory distress, speaks in full sentences. HEART: Regular rate and rhythm. No murmur heard. SKIN: Warm, dry, no rash. NEURO: Alert and oriented x3. Course Course Emergency Course: Patient is aware of diagnosis, understands and agrees to treatment plan. Anticipatory guidance given. Patient agrees to follow-up as directed and is aware of reasons to seek care at the emergency department. Portions of this record may have been created with voice recognition software Level of Care: Express Care Visit Vital Signs Vital signs: Vital Signs Temperature 97.9 F 10/14/22 15:49 Pulse Rate 127 H 10/14/22 15:49 Respiratory Rate 16 10/14/22 15:49 Blood Pressure 146/85 H 10/14/22 15:49 Pulse Oximetry 99 10/14/22 15:49 Oxygen Delivery Room Air 10/14/22 15:49 Temperature 97.9 F 10/14/22 15:49 Pulse Rate 127 H 10/14/22 15:49 Respiratory Rate 16 10/14/22 15:49 Blood Pressure 146/85 H 10/14/22 15:49 Pulse Oximetry 99 10/14/22 15:49 Oxygen Delivery Room Air 10/14/22 15:49 MDM - URI/Sore Throat MDM Narrative Medical decision making narrative: strep result reviewed with pt, will send for culture. Patient endorses concern for possible STD since she has a new partner. Will send gonorrhea/chlamydia throat swab as well. She is aware the test will take about one week to result. Advise supportive treatments. Patient is ap
[2022-10-25 07:45] LABS: Reference Lab Test Result Not Detected
== END 2022-10-14 16:40 | disposition home or self-care (01) ==
PROVIDERS: Emergency Provider Nurse Practitioner Family; PCP Nurse Practitioner Family
DX: J03.90 Acute tonsillitis, unspecified (principal); J45.909 Unspecified asthma, uncomplicated; Z87.891 Personal history of nicotine dependence
CPT/HCPCS: 36415; 36416; 86308; 87081; 87880; 99213; G0463

== ENCOUNTER 2023-05-04 12:29 | Emergency (ER) | payer OTHER, SELFPAY ==
--- NOTE | 2023-05-04 12:46 | ED.URI ---
HPI - URI/Sore Throat General Chief Complaint: Upper Respiratory Infection Stated Complaint: head/nose stuffy,chest hurts Time Seen by Provider: 05/04/23 13:10 Source: patient and RN notes reviewed Mode of arrival: ambulatory Limitations: no limitations History of Present Illness HPI Narrative: 27-year-old female presents concern for 3 day history of dry cough, nasal drainage, chest tightness when she coughs. She reports her daughter has similar symptoms. Reports she had a negative COVID test at home MD elicited complaint: cough and nasal congestion Related Data Home Medications Medication Instructions Recorded Confirmed fluticasone furoate 200 1 inh inhalation DAILY 12/26/19 05/04/23 mcg-vilanterol 25 mcg/dose inhalation powder (Breo Ellipta) etonogestrel 0.12 mg-ethinyl 1 vag ring vaginal DAILY 06/15/22 05/04/23 estradiol 0.015 mg/24 hr vaginal ring (EluRyng) Allergies Allergy/AdvReac Type Severity Reaction Status Date / Time No Known Allergies Allergy Verified 05/04/23 13:02 Review of Systems Review of Systems: CONSTITUTIONAL: Denies malaise, chills, sweats, or fever. EYES: Denies visual changes, redness, or discharge. ENT: Reports rhinorrhea, congestion CARDIOVASCULAR: Denies chest pain, palpitations, or edema. RESPIRATORY: Reports cough. Denies dyspnea. GASTROINTESTINAL: Denies abdominal pain, nausea, vomiting, diarrhea SKIN: Denies rash or itching. MUSCULOSKELETAL: Denies myalgia. NEUROLOGIC: Denies headache. All systems reviewed & are unremarkable except as noted in HPI and below PMFSH Past Medical History Medical History (Updated 05/04/23 @ 13:19 by Viktoria Farias NP) Anxiety Asthma Migraines Other prophylactic gland removal Social History Social History Smoking status: Former smoker Living arrangements: with family Gender identity (if verbalized by the patient): Female Comments At time of signature, agree with nursing past medical, surgical, social and family history. There is no relevant family history pertinent to the presenting complaint Exam Narrative: GENERAL: Well-appearing, well-nourished, and in no acute distress. HEAD: Normocephalic EYES: PERRLA, conjunctivae clear ENT: Nares clear, turbinates edematous and erythematous, clear discharge. Mucous membranes moist. TM pearly otto with dull light reflex bilaterally; no tragal tenderness. Oropharynx not erythematous without lesions. Tonsils not enlarged and without exudate, no drooling, no hoarseness, no trismus, uvula midline. NECK: Supple. No lymphadenopathy CHEST: Clear to auscultation, breath sounds equal. No wheezing, rhonchi, rales, or stridor. No respiratory distress, speaks in full sentences. HEART: Regular rate and rhythm. No murmur heard. SKIN: Warm, dry, no rash. NEURO: Alert and oriented x3. PSYCH: Normal mood and affect Course Course Emergency Course: Patient is aware of diagnosis, understands and agrees to treatment plan. Anticipatory guidance given. Patient agrees to follow-up as directed and is aware of reasons to seek care at the emergency department. Portions of this record may have been created with voice recognition software Level of Care: Express Care Visit Vital Signs Vital signs: Vital Signs Temperature 98.9 F 05/04/23 12:49 Pulse Rate 99 05/04/23 12:49 Respiratory Rate 16 05/04/23 12:49 Blood Pressure 119/79 05/04/23 12:49 Pulse Oximetry 98 05/04/23 12:49 Oxygen Delivery Room Air 05/04/23 12:49 Temperature 98.9 F 05/04/23 12:49 Pulse Rate 99 05/04/23 12:49 Respiratory Rate 16 05/04/23 12:49 Blood Pressure 119/79 05/04/23 12:49 Pulse Oximetry 98 05/04/23 12:49 Oxygen Delivery Room Air 05/04/23 12:49 Reviewed. MDM - URI/Sore Throat MDM Narrative Medical decision making narrative: Differential diagnosis considered: George virus, strep pharyngitis, allergic rhinitis, upper
[2023-05-04 12:49] VITALS: BP 119/79; PULSE 99; RESP 16; TEMP 37.2; O2SAT 98
== END 2023-05-04 13:28 | disposition home or self-care (01) ==
PROVIDERS: Emergency Provider Nurse Practitioner; PCP Nurse Practitioner Family
DX: J06.9 Acute upper respiratory infection, unspecified (principal); J45.909 Unspecified asthma, uncomplicated; Z87.891 Personal history of nicotine dependence
CPT/HCPCS: 99213; G0463

== ENCOUNTER 2023-07-05 13:56 | Emergency (ER) | payer OTHER, SELFPAY ==
--- NOTE | 2023-07-05 14:06 | ED.URI ---
HPI - URI/Sore Throat General Chief Complaint: Upper Respiratory Infection Stated Complaint: sinus issue,fever Time Seen by Provider: 07/05/23 14:27 Source: patient and RN notes reviewed Mode of arrival: ambulatory Limitations: no limitations History of Present Illness HPI Narrative: 28-year-old female presents concern for cough, sinus pressure, fever. Reports symptoms started 6 days ago but she felt worse in the last 2 days. Reports she has been taking [id number] medicine without much relief. Reports symptoms worsen over last 2 days. MD elicited complaint: nasal congestion Related Data Home Medications Medication Instructions Recorded Confirmed fluticasone furoate 200 1 inh inhalation DAILY 12/26/19 07/05/23 mcg-vilanterol 25 mcg/dose inhalation powder (Breo Ellipta) etonogestrel 0.12 mg-ethinyl 1 vag ring vaginal DAILY 06/15/22 07/05/23 estradiol 0.015 mg/24 hr vaginal ring (EluRyng) albuterol sulfate 90 mcg/actuation 2 puff inhalation DIRECTED 07/05/23 07/05/23 aerosol inhaler Allergies Allergy/AdvReac Type Severity Reaction Status Date / Time No Known Allergies Allergy Verified 07/05/23 14:02 Review of Systems Review of Systems: CONSTITUTIONAL: Reports malaise, fever. EYES: Denies visual changes, redness, or discharge. ENT: Reports rhinorrhea, congestion, sinus pain, otalgia CARDIOVASCULAR: Denies chest pain, palpitations, or edema. RESPIRATORY: Reports cough. Denies dyspnea. GASTROINTESTINAL: Denies abdominal pain, nausea, vomiting, diarrhea SKIN: Denies rash or itching. MUSCULOSKELETAL: Denies myalgia. NEUROLOGIC: Denies headache. All systems reviewed & are unremarkable except as noted in HPI and below PMFSH Past Medical History Medical History (Updated 07/05/23 @ 14:38 by Viktoria Farias NP) Anxiety Asthma Migraines Other prophylactic gland removal Social History Social History Smoking status: Former smoker Living arrangements: with family Gender identity (if verbalized by the patient): Female Comments At time of signature, agree with nursing past medical, surgical, social and family history. There is no relevant family history pertinent to the presenting complaint Exam Narrative: GENERAL: My apply-appearing, well-nourished, and in no acute distress. HEAD: Normocephalic EYES: PERRLA, conjunctivae clear ENT: Nares clear,. Mucous membranes moist. TM pearly otto with dull light reflex on the right, erythematous and bulging on the left; no tragal tenderness. Oropharynx not erythematous without lesions. Tonsils not enlarged and without exudate, no drooling, no hoarseness, no trismus, uvula midline. NECK: Supple. No lymphadenopathy CHEST: Clear to auscultation, breath sounds equal. No wheezing, rhonchi, rales, or stridor. No respiratory distress, speaks in full sentences. HEART: Regular rate and rhythm. No murmur heard. SKIN: Warm, dry, no rash. NEURO: Alert and oriented x3. PSYCH: Normal mood and affect Course Course Emergency Course: Patient is aware of diagnosis, understands and agrees to treatment plan. Anticipatory guidance given. Patient agrees to follow-up as directed and is aware of reasons to seek care at the emergency department. Portions of this record may have been created with voice recognition software Level of Care: Express Care Visit Vital Signs Vital signs: Reviewed. MDM - URI/Sore Throat MDM Narrative Medical decision making narrative: Differential diagnosis considered: George virus, strep pharyngitis, allergic rhinitis, upper respiratory tract infection, sinusitis, rhinosinusitis, nasopharyngitis. viral pharyngitis, otitis media, otitis externa, pneumonia, bronchitis, viral cough syndrome, viral syndrome, and influenza. Exam findings show no acute concerns or changes; patient is non-toxic appearing and is in no distress. Patient is appropriate for outpatient treatment and fo
[2023-07-05 14:12] VITALS: BP 120/80; PULSE 109; RESP 16; TEMP 36.6; O2SAT 98
== END 2023-07-05 14:45 | disposition home or self-care (01) ==
PROVIDERS: Emergency Provider Nurse Practitioner; PCP Nurse Practitioner Family
DX: J10.1 Influenza due to other identified influenza virus with other respiratory manifestations (principal); H66.002 Acute suppurative otitis media without spontaneous rupture of ear drum, left ear; Z87.891 Personal history of nicotine dependence; J45.909 Unspecified asthma, uncomplicated
CPT/HCPCS: 87804; 99213; G0463

== ENCOUNTER 2023-07-23 18:36 | Emergency (ER) | payer OTHER, SELFPAY ==
[2023-07-23 19:03] VITALS: BP 141/80; PULSE 91; RESP 16; TEMP 36.6; O2SAT 98
--- NOTE | 2023-07-23 19:19 | ED.NECK ---
HPI - Neck Pain/Injury General Chief Complaint: Neck Pain/Injury Stated Complaint: Left Side Ear/Neck Pain Time Seen by Provider: 07/23/23 19:19 Source: patient Mode of arrival: ambulatory Limitations: no limitations History of Present Illness HPI Narrative: 28-year-old female presents with complaint of left ear pain, left-sided neck pain and sore throat starting yesterday. Reports that left neck pain is severe today. Rates /. Reports she cannot turn her neck due to pain. States that she feels a lump to back of neck that is very tender. Patient's mother is here with her and reports history of pharyngitis all abscess that required I&D. Mother is requesting CT scan of neck to rule out abscess. Patient afebrile. Eating and drinking normally without difficulty swelling. Patient had influenza 2 weeks ago and was also treated with amoxicillin for left ear infection. Also reviewed and negative except as noted above. Related Data Home Medications Medication Instructions Recorded Confirmed fluticasone furoate 200 1 inh inhalation DAILY 12/26/19 07/23/23 mcg-vilanterol 25 mcg/dose inhalation powder (Breo Ellipta) etonogestrel 0.12 mg-ethinyl 1 vag ring vaginal DAILY 06/15/22 07/23/23 estradiol 0.015 mg/24 hr vaginal ring (EluRyng) albuterol sulfate 90 mcg/actuation 2 puff inhalation DIRECTED 07/05/23 07/23/23 aerosol inhaler sertraline 100 mg tablet 100 mg PO DAILY 07/23/23 07/23/23 Allergies Allergy/AdvReac Type Severity Reaction Status Date / Time No Known Allergies Allergy Verified 07/23/23 18:52 Review of Systems Review of Systems: CONSTITUTIONAL: Denies fever, chills, or sweats. EYES: Denies visual changes, redness, or discharge. ENT: Denies rhinorrhea, congestion . Reports sore throat, left ear pain. CARDIOVASCULAR: Denies chest pain, palpitations, or edema. RESPIRATORY: Denies cough or dyspnea. GASTROINTESTINAL: Denies abdominal pain, nausea, vomiting, or diarrhea. GENITOURINARY: Denies dysuria or hematuria. SKIN: Denies rash or itching. MUSCULOSKELETAL: Denies back pain, joint pain, or myalgia. Reports left-sided neck pain With tender swollen area. NEUROLOGIC: Denies headache, numbness, or weakness. PSYCHIATRIC: Denies anxiety or depression. All other systems reviewed are negative, except as documented in HPI. [facility] Past Medical History Medical History (Updated 07/23/23 @ 19:30 by Cornelia Zaragoza NP) Anxiety Asthma Migraines Other prophylactic gland removal Social History Social History Smoking status: Former smoker Living arrangements: with family Gender identity (if verbalized by the patient): Female Comments At time of signature, agree with nursing past medical, surgical, social and family history. There is no relevant family history pertinent to the presenting complaint. Exam Narrative: GENERAL: This is a well-nourished, well-developed patient, in no apparent distress. HEAD: normocephalic, atraumatic. EYES: PERRL. Sclera clear/white. Vision is grossly intact. EARS: External ears normal, auditory canals clear and without drainage, TMs normal without perforation. Hearing grossly intact. NOSE: External nose normal with no obvious nasal discharge, nares without redness, no rhinorrhea. THROAT: Mucous membranes moist, mild erythema without swelling or exudates. NECK: Neck supple, Tender enlarged area to left side of neck at base possibly a posterior cervical lymph node. No masses or thyromegaly. CARDIOVASCULAR: Regular rate and rhythm without murmurs, gallops, or rubs. RESPIRATORY: Clear to auscultation. Breath sounds equal bilaterally. No wheezes, rales, or rhonchi. SKIN: warm, Dry, intact with no suspicious lesions or rash, good texture and turgor. NEURO: awake, alert, and oriented to person, place and time. There were no obvious focal neurologic abnormalities. EXTREMITIES: No joint tenderness, eff
== END 2023-07-23 19:35 | disposition short-term general hospital (02) ==
PROVIDERS: Emergency Provider Nurse Practitioner Family; PCP Nurse Practitioner Family
DX: M54.2 Cervicalgia (principal); H92.02 Otalgia, left ear; F41.9 Anxiety disorder, unspecified; J45.909 Unspecified asthma, uncomplicated; Z87.891 Personal history of nicotine dependence
CPT/HCPCS: 99212; G0463

== ENCOUNTER 2023-07-23 19:54 | Emergency (ER) | payer OTHER, SELFPAY ==
[2023-07-23 20:25] VITALS: BP 132/90; PULSE 100; RESP 16; TEMP 36.7; O2SAT 100
--- NOTE | 2023-07-23 22:41 | PC.NURSE ---
Patient's mother comes to the triage desk and states the patient is wanting to go home. Patient is seen ambulating from the waiting room without incident.
== END 2023-07-23 22:58 | disposition left against medical advice (07) ==
PROVIDERS: PCP Nurse Practitioner Family
DX: M54.2 Cervicalgia (principal)
CPT/HCPCS: 99199

== ENCOUNTER 2023-07-24 09:31 | Emergency (ER) | payer OTHER, SELFPAY ==
--- NOTE | ~2023-07-24 | CT_ITS ---
EXAMINATION: CTA BRAIN/CAROTID DATE: 07/24/2023 14:11 INDICATION: Headache. Dizziness. TECHNIQUE: Computed tomographic angiography (CTA) of the head and neck was performed with 100 mL Omni paque-350 intravenous contrast. Multiplanar reconstructions and maximum intensity projection 3D-recon structions of the carotid arteries and of the intracranial arteries were created by the technologist on a separate workstation. Precontrast CT of the head was also obtained. Automated exposure control and iterative reconstruction technique were employed.The dose-length product was 1762.74 mGy-cm. COMPARISON: None. FINDINGS: Carotid arteries: Visualized aortic arch and great vessels arising from the arch are normal in caliber with no evident atherosclerotic plaque or dissection. There is no evident atherosclerotic plaque with 0% stenosis of the right and left carotid bulbs relative to normal distal artery lumen diameter (NASCET criteria). V isualized upper lungs are clear. Likely positional mild reversal of the normal cervical lordosis. Head: No acute intracranial hemorrhage, acute infarction or abnormal extra axial fluid collection. Ventricl es are normal and symmetric. No mass/mass effect. The orbits, paranasal sinuses and mastoid air cells are normal. Intracranial arteries There is no hemodynamically significant stenosis in the vertebral, basilar and internal carotid arter ies. Vertebral arteries are codominant. There are no aneurysms identified. Both A1 and P1 segments a re patent. There also patent anterior communicating and bilateral posterior communicating arteries. C erebral arterial arborization appears symmetric. IMPRESSION: 1. No evident atherosclerotic plaque with 0% stenosis of the right and left carotid bulbs relative to normal distal artery lumen diameter (NASCET criteria). 2. Normal head CT and cerebral CT angiogram. Reviewed, dictated and finalized at location A. [facility] IMPRESSION: 1. No evident atherosclerotic plaque with 0% stenosis of the right and left car otid bulbs relative to normal distal artery lumen diameter (NASCET criteria). 2. Normal head CT and cerebral CT angiogram.
[2023-07-24 09:45] VITALS: BP 117/81; PULSE 83; RESP 16; TEMP 36.6; O2SAT 100
[2023-07-24 11:41] VITALS: BP 113/79; PULSE 74; PULSE 78; RESP 18; O2SAT 99
--- NOTE | 2023-07-24 11:58 | ED.GENADULT ---
HPI - General Adult General Chief complaint: Unspecified Stated complaint: Dizzy with neck pain Time Seen by Provider: 07/24/23 11:56 Source: patient and family (mother) Mode of arrival: ambulatory Limitations: no limitations History of Present Illness HPI narrative: patient presents with a complaint of feeling dizzy for the past 1-2 weeks, worsening recently. She is also complaining of left-sided neck pain that started on Friday it is associated with tingling in her left shoulder and is painful to raise left arm. No trauma. in regards to the dizziness, she states it does not feel like the room is spinning but that her balance and equilibrium are off. She does notice this especially with position changes such as going to sit in her spinning chair at work, or standing. Does not particularly notice dizziness while moving her head while lying still. No speech changes, diplopia. No fevers though felt subjectively facing baster jumpbasting the waiting room but was cool to touch per mother. At baseline she does wear hearing aids in both ears for which she states is generalized hearing loss, exact diagnosis unclear, though only needed for certain frequencies. she did have recurrent ear infections as a child but had not as an adult she was diagnosed with a left ear infection recently at [facility]. She is status post her dosage of amoxicillin (w/o clauvanulate) and prednisone. she has been nauseated but without emesis. In general she has decreased appetite. No vision changes. 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 LMP ; wears NuVaring. Related Data Home Medications Medication Instructions Recorded Confirmed fluticasone furoate 200 1 inh inhalation DAILY 12/26/19 07/23/23 mcg-vilanterol 25 mcg/dose inhalation powder (Breo Ellipta) etonogestrel 0.12 mg-ethinyl 1 vag ring vaginal DAILY 06/15/22 07/23/23 estradiol 0.015 mg/24 hr vaginal ring (EluRyng) albuterol sulfate 90 mcg/actuation 2 puff inhalation DIRECTED 07/05/23 07/23/23 aerosol inhaler sertraline 100 mg tablet 150 mg PO DAILY 07/23/23 07/23/23 Allergies Allergy/AdvReac Type Severity Reaction Status Date / Time No Known Allergies Allergy Verified 07/24/23 11:36 [facility] Past Medical History Medical History (Updated 07/25/23 @ 00:01 by Alee Thomason) Anxiety Asthma Migraines Other prophylactic gland removal Wears hearing aid in both ears Social History Social History Smoking status: Former smoker Living arrangements: with family Gender identity (if verbalized by the patient): Female Exam Narrative: GENERAL: Well-appearing, well-nourished, and in no acute distress. HEAD: Normocephalic, atraumatic. EYES: Non injected, non icteric. Mild conjunctival pallor. No nystagmus. EOMI. Pupils equal. ENT: Nares clear, no rhinorrhea or epistaxis. NECK: Supple. TTP along left trapezius muscle. No C spine midline tenderness but posterior cervical lymph adenopathy versus paraspinal muscle tenderness to palpation CHEST: Speaking in complete sentences. No respiratory distress. HEART: Regular rate and rhythm. . ABDOMEN: Soft, nondistended. EXTREMITIES: Normal range of motion x3. ROM limited on left secondary to pain. No edema. SKIN: Warm, dry, no rash. NEURO: No focal deficits. Alert and oriented x3. Speech without aphasia or dysarthria. Sensation intact throughout. PSYCH: Normal mood and affect. Course Vital Signs Vital signs: Vital Signs Temperature 97.9 F 07/24/23 09:45 Pulse Rate 83 07/24/23 09:45 Respiratory Rate 16 07/24/23 09:45 Blood Pressure 117/81 07/24/23 09:45 Pulse Oximetry 100 07/24/23 09:45 Temperature 97.9 F 07/24/23 09:45 Pulse Rate 88 07/24/23 16:03 Respiratory Rate 24 H 07/24/23 16:03 Blood Pressure 109/71
--- NOTE | 2023-07-24 12:13 | ECG_ITS ---
Measurements Intervals [place] Rate: 64 P: 51 PA: 143 QRS: 44 QRSD: 85 T: 21 QT: 401 QTc: 416 Interpretive Statements SINUS RHYTHM WITH SINUS ARRHYTHMIA BASELINE ARTIFACT- I, II, III, AVR, AVL, AVF NORMAL ECG COMPARED TO ECG 02/25/2020 13:23:57 SINUS ARRHYTHMIA NOW PRESENT Electronically Signed On 07-24-2023 12:54:01 BEHAVIORAL HE[employer] CARE MANAGER by Donovan Kahn D.O.
[2023-07-24] MEDS: MECLIZINE HCL 12.5 MG TABLET PO (12:33)
[2023-07-24] MEDS: HYDROcodone/acetaminophen (*CRX) 5-325 MG TABLET 1 TAB PO (12:34)
[2023-07-24] MEDS: ACETAMINOPHEN 325 MG TABLET 650 MG PO (12:34)
[2023-07-24 12:51] LABS: Basophils Absolute Auto 0.1 K/mm3 (0.0-0.1); Basophils Percent Auto 0.8 % (0.2-1.2); Eosinophils Absolute Auto 0.3 K/mm3 (0-0.3); Eosinophils Percent Auto 3.4 % (0-4.4); Hematocrit 41.8 % (37.0-47.0); Hemoglobin 14.1 g/dL (12.0-15.0); Immature Granulocyte Absolute 0.03 K/mm3 (0.00-0.031); Immature Granulocyte Percent A 0.3 % (0-0.5); Lymphocytes Absolute Auto 2.34 K/mm3 (0.9-3.2); Lymphocytes Percent Auto 25.2 % (18.3-44.2); Mean Corpuscular HGB Conc 33.7 g/dl (32-36); Mean Corpuscular Hemoglobin 30.7 pg (26-34); Mean Corpuscular Volume 91.1 fl (80-100); Mean Platelet Volume 10.4 fl (7.4-10.4); Monocytes Absolute Auto 0.9 K/mm3 (0.1-0.6); Monocytes Percent Auto 9.5 % (2.6-8.5); Neutrophils Absolute Auto 5.6 K/mm3 (1.3-6.7); Neutrophils Percent Auto 60.8 % (45.5-73.1); Platelet Count Result 307 k/mm3 (150-375); Red Blood Count 4.59 M/mm3 (4.2-5.4); Red Cell Distribution Width 13.3 % (11.5-14.5); White Blood Count 9.3 K/mm3 (4.5-10.0)
[2023-07-24 13:03] LABS: Alanine Aminotransferase 16 U/L (6-35); Albumin Level 3.8 g/dL (3.5-5.1); Alkaline Phosphatase 72 U/L (38-126); Anion Gap 6 mmol/L (8-16); Aspartate Amino Transferase 19 U/L (14-36); Bilirubin,Total 0.4 mg/dL (0.2-1.3); Blood Urea Nitrogen 11 mg/dL (7-17); Calcium 9.3 mg/dL (8.4-10.2); Carbon Dioxide 24 mmol/L (22-30); Chloride 108 mmol/L (98-107); Estimated CRCL calculation 116 ml/min; Estimated Glomerular Filt Rate > 60; Glucose 89 mg/dL (65-110); Potassium 3.5 mmol/L (3.4-5.0); Sodium 138 mmol/L (137-145)
[2023-07-24 13:27] LABS: Influenza A QL RT-PCR Negative (Negative); Influenza B QL RT-PCR Negative (Negative); RSV RNA, RT-PCR Negative (Negative); SARS-CoV-2 RNA PCR Negative (Negative)
[2023-07-24 13:35] VITALS: BP 103/79; BP 107/72; PULSE 74; PULSE 82
[2023-07-24 13:37] VITALS: BP 106/71; PULSE 82
[2023-07-24 14:00] LABS: Appearance Urine Clear (Clear); Bacteria Urine None Seen /hpf; Bilirubin Urine Negative (Negative); Blood Urine Negative (Negative); Color Urine Yellow (Yellow); Glucose Urine UA Negative (Negative); Ketones Urine Trace mg/dL (Negative); Leukocyte Esterase Ur 1+ LEU/UL (Negative); Nitrate Urine Negative (Negative); Non Pathogenic Casts 0-2; Protein Urine Negative (Negative); Specific Grav Ur 1.023 (1.001-1.035); Squamous Epithelial Cell Urine Moderate /hpf (Few)
[2023-07-24 14:14] LABS: Add Urine Microscopic? YES
[2023-07-24] MEDS: ONDANSETRON HCL ODT 4 MG TABLET PO (14:48)
[2023-07-24 14:58] VITALS: BP 117/73; PULSE 74; RESP 18; O2SAT 99
[2023-07-24] MEDS: methocarbamoL 500 MG TABLET PO (14:58)
[2023-07-24 15:29] LABS: Monoscreen Negative (Negative); Negative Monotest Control Negative (Negative); Positive Monotest Control Positive (Positive)
[2023-07-24 16:03] VITALS: BP 109/71; PULSE 88; RESP 24; O2SAT 98
== END 2023-07-24 16:05 | disposition home or self-care (01) ==
PROVIDERS: Emergency Provider Student in an Organized Health Care Education/Training Program; PCP Nurse Practitioner Family
DX: H83.02 Labyrinthitis, left ear (principal); R42 Dizziness and giddiness; M54.2 Cervicalgia; R59.1 Generalized enlarged lymph nodes; F41.9 Anxiety disorder, unspecified; Z79.899 Other long term (current) drug therapy; Z20.822 Contact with and (suspected) exposure to COVID-19; Z87.891 Personal history of nicotine dependence
CPT/HCPCS: 36415; 70496; 70498; 80053; 81001; 81025; 83735; 85025; 86308; 87086; 87088; 87637; 93005; 99284; A9270; Q9967

== ENCOUNTER 2023-10-23 17:54 | Emergency (ER) | payer OTHER, SELFPAY ==
--- NOTE | 2023-10-23 18:10 | ED.URI ---
HPI - URI/Sore Throat General Chief Complaint: Upper Respiratory Infection Stated Complaint: chest conguestion Time Seen by Provider: 10/23/23 18:25 Source: patient Mode of arrival: ambulatory Limitations: no limitations History of Present Illness HPI Narrative: Patient is a 28-year-old female who presents with congestion, ear pain, cough for over a week. Patient has tried [id number] medication without relief. Denies any fever, chills, nausea, vomiting, diarrhea. Related Data Home Medications Medication Instructions Recorded Confirmed fluticasone furoate 200 1 inh inhalation DAILY 12/26/19 10/23/23 mcg-vilanterol 25 mcg/dose inhalation powder (Breo Ellipta) etonogestrel 0.12 mg-ethinyl 1 vag ring vaginal DAILY 06/15/22 10/23/23 estradiol 0.015 mg/24 hr vaginal ring (EluRyng) albuterol sulfate 90 mcg/actuation 2 puff inhalation DIRECTED 07/05/23 10/23/23 aerosol inhaler sertraline 100 mg tablet 150 mg PO DAILY 07/23/23 10/23/23 Allergies Allergy/AdvReac Type Severity Reaction Status Date / Time No Known Allergies Allergy Verified 10/23/23 18:41 Review of Systems Review of Systems: All systems reviewed & are unremarkable except as noted in HPI and below Constitutional: Constitutional: Denies body ache(s), Denies chills, Denies fatigue, Denies fever(s), Denies headache(s), Denies malaise and Denies weakness Eyes: Eyes: Denies blurry vision, Denies itchy eyes and Denies loss of vision ENT: Reports otalgia, Denies headache(s), Reports nasal congestion, Denies sinus pain and Denies sore throat Cardiovascular: Cardiovascular: Denies chest pain, Denies irregular heart rhythm and Denies dyspnea Respiratory: Respiratory: Reports cough and Denies dyspnea Gastrointestinal: Gastrointestinal: Denies abdominal pain, Denies diarrhea, Denies nausea and Denies vomiting Musculoskeletal: Musculoskeletal: Denies back pain, Denies myalgias and Denies arthralgias Integumentary/Breasts: Skin/Breast: Denies pruritus and Denies rash Neurologic: Denies headache(s), Denies loss of vision and Denies weakness Psychiatric: Psychiatric: Reports no additional psychiatric complaints Endocrine: Endocrine: Denies fatigue Allergic/Immunologic: Allergic/Immunologic: Denies itchy eyes PMFSH Past Medical History Medical History Anxiety Asthma Migraines Other prophylactic gland removal Wears hearing aid in both ears Social History Social History Smoking status: Former smoker Living arrangements: with family Gender identity (if verbalized by the patient): Female Comments At time of signature, agree with nursing past medical, surgical, social and family history. There is no relevant family history pertinent to the presenting complaint. Exam Const: General: cooperative, healthy appearing, comfortable, no acute distress and well nourished Nutritional Appearance: well nourished Orientation/consciousness: patient oriented x3 Limitations: no limitations HENMT: Head: normal to inspection, normocephalic and atraumatic Ears: hearing grossly normal bilaterally, external ears normal, TM's normal bilaterally, EAC's normal and no periauricular adenopathy Face/Nose/Sinus: Normal external nose present, Abnormal mucous membranes and turbinates present erythematous bilateral and diffuse, normal facial exam, sinuses nontender and face symmetric Face and sinus: normal facial exam, sinuses nontender and face symmetric Mouth: Yes Normal oral and palatal mucosa present, Yes lip normal, Yes tongue normal, Yes Normal salivary glands and ducts present, Yes oropharynx normal and Yes moist mucous membranes Teeth and gingiva: dentition normal Throat: posterior oropharynx normal, tonsils normal and uvula midline Eyes: General: appearance normal, both eyes and all related structures Alignment and Position: alignment normal
[2023-10-23 18:27] VITALS: BP 111/75; PULSE 87; RESP 16; TEMP 36.7; O2SAT 100
== END 2023-10-23 19:28 | disposition home or self-care (01) ==
PROVIDERS: Emergency Provider Nurse Practitioner Family; PCP Nurse Practitioner Family
DX: J06.9 Acute upper respiratory infection, unspecified (principal); R05.9 Cough, unspecified; Z20.822 Contact with and (suspected) exposure to COVID-19; J45.909 Unspecified asthma, uncomplicated; F41.9 Anxiety disorder, unspecified
CPT/HCPCS: 87426; 87804; 99213; G0463

== ENCOUNTER 2024-04-08 09:19 | Emergency (ER) | payer OTHER, SELFPAY ==
--- NOTE | 2024-04-08 09:29 | ED.URI ---
HPI - URI/Sore Throat General Chief Complaint: Upper Respiratory Infection Stated Complaint: flu A exp. CERVANTES,fever,nauseous,bodyaches Source: patient, RN notes reviewed and old records reviewed Mode of arrival: ambulatory Limitations: no limitations History of Present Illness HPI Narrative: Patient presents with concerns about influenza. She reports she has had a positive exposure. Began last night with headache, fever, body aches, nausea. She denies any vomiting. She has been taking [id number] medications for her symptoms with moderate relief. She does affirm fatigue. Says that she began developing a cough this morning. Has been using albuterol inhaler for this. She is in no distress, including respiratory distress. Related Data Home Medications Medication Instructions Recorded Confirmed fluticasone furoate 200 1 inh inhalation DAILY 12/26/19 04/08/24 mcg-vilanterol 25 mcg/dose inhalation powder (Breo Ellipta) etonogestrel 0.12 mg-ethinyl 1 vag ring vaginal DAILY 06/15/22 04/08/24 estradiol 0.015 mg/24 hr vaginal ring (EluRyng) albuterol sulfate 90 mcg/actuation 2 puff inhalation DIRECTED 07/05/23 04/08/24 aerosol inhaler sertraline 100 mg tablet 150 mg PO DAILY 07/23/23 04/08/24 Allergies Allergy/AdvReac Type Severity Reaction Status Date / Time No Known Allergies Allergy Verified 04/08/24 09:30 Review of Systems Review of Systems: All systems reviewed & are unremarkable except as noted in HPI and below Constitutional: Constitutional: Reports no additional constitutional complaints, Reports body ache(s), Reports fatigue, Reports fever(s) and Reports headache(s) ENT: Reports system reviewed and no additional complaints, except as documented, Reports nasal congestion and Reports sore throat Cardiovascular: Cardiovascular: Reports no additional cardiovascular complaints Respiratory: Respiratory: Reports no additional respiratory complaints, Reports cough and Reports wheezing Gastrointestinal: Gastrointestinal: Reports no additional gastrointestinal complaints PMFSH Past Medical History Medical History Anxiety Asthma Migraines Other prophylactic gland removal Wears hearing aid in both ears Social History Social History Smoking status: Former smoker Living arrangements: with family Gender identity (if verbalized by the patient): Female Comments At the time of my signature, I reviewed and agree with the nursing past medical, surgical, social, and family history. There is no relevant family history pertinent to the patient complaint. Exam Const: General: cooperative, no acute distress, alert and awake Orientation/consciousness: oriented to person, oriented to place and oriented to time HENMT: Head: normal to inspection Ears: TM's normal bilaterally Mouth: Yes moist mucous membranes Throat: posterior oropharynx normal Resp: Effort & Inspection: normal respiratory effort and able to speak in complete sentences Auscultation: clear to auscultation bilaterally, no crackles, no rales, no rhonchi and no wheezes Cardio: Palpation: normal PMI Rate: regular rate Rhythm: regular rhythm Heart sounds: S1 normal heart sound present and S2 normal heart sound present Neuro: General: oriented to person, oriented to place and oriented to time Cranial nerves: Yes CN's II-XII intact bilaterally Psych: Appearance: grossly normal Thought process: Normal thought process present Insight: Good insight present (Psych) Judgement: Good judgement present (Psych) Course Course Level of Care: Express Care Visit Vital Signs Vital signs: Vital Signs Temperature 97.5 F L 04/08/24 09:34 Pulse Rate 115 H 04/08/24 09:34 Respiratory Rate 15 04/08/24 09:34 Blood Pressure 129/80 04/08/24 09:34 Pulse Oximetry 96 04/08/24 09:34 Oxygen Delivery Room Air 04/08/24 09:34 Temperature 97.5 F L 04/08/24 09:34 Pulse Rate 115 H 04/08/24 09:34 Respiratory Rate 15 04/08/24 09:34 Blood Pressure 129/80 04/08/24 09:34 Pulse Oximetry 96 04/08/24 09:34 Oxygen Delivery Room Air 04/08/24 09:34 Reviewed MDM - URI/Sore Throat MDM Narrative Medical decision making narrative: Negative COVID, negative flu, negative strep. Culture pending. Symptoms likely secondary to viral infection. Supportive care measures discussed. Discharge instructions reviewed with patient, as well as provided in writing per nursing staff. The instructions also include specific and strict return/GO TO THE ER as well as f/u information. All questions have been answered, and the patient deny any further questions with discharge and discharge plan. Some parts of this dictation were generated by voice recognition software and may contain typographical and/or grammatical inaccuracies. Differential Diagnosis Differential diagnosis: Likely upper respiratory infection, otitis media, viral infection, influenza and pharyngitis Lab Data Attestation: I reviewed the patient's lab results. Labs: Lab Results 04/08/24 Range/Units 09:48 POC Influenza A Ag Negative (Negative) POC Influenza B Ag Negative (Negative) POC SARS CoV-2 Ag Negative (Negative) Discharge Plan Discharge Clinical Impression: Upper respiratory infection Patient Disposition: Home, Self-Care Condition: Stable Instructions: Antibiotic Form, Cold Symptoms (ED) Additional Instructions: Continue Tylenol and ibuprofen per package instructions as needed for fever and pain. Continue to use albuterol per prescriber instructions. Follow-up with primary care provider, emergency department for new or worse symptoms Prescriptions: No Action etonogestrel-ethinyl estradiol [EluRyng] 0.12-0.015 mg/24 hr ring 1 vag ring VAGINAL DAILY sertraline 100 mg tablet 150 mg PO DAILY albuterol sulfate 90 mcg/actuation HFA aerosol inhaler 2 puff INHALATION DIRECTED fluticasone furoate-vilanterol [Breo Ellipta] 200-25 mcg/dose blister with device 1 inh INHALATION DAILY Follow-up/Referrals: Brynn,LINDY Browne [Primary Care Provider] - 2 Weeks Stand Alone Forms: Work/School Release IP Time of Disposition: 09:54
[2024-04-08 09:34] VITALS: BP 129/80; PULSE 115; RESP 15; TEMP 36.4; O2SAT 96
[2024-04-08 09:50] LABS: EDCOVIDSCREEN Negative (Negative); EDINFLUASCREEN Negative (Negative); EDINFLUBSCREEN Negative (Negative)
== END 2024-04-08 09:58 | disposition home or self-care (01) ==
PROVIDERS: Emergency Provider Nurse Practitioner Family; PCP Nurse Practitioner Family
DX: J06.9 Acute upper respiratory infection, unspecified (principal); Z20.822 Contact with and (suspected) exposure to COVID-19; Z87.891 Personal history of nicotine dependence; J45.909 Unspecified asthma, uncomplicated
CPT/HCPCS: 87426; 87804; 99212; G0463

== ENCOUNTER 2024-06-01 06:53 | Emergency (ER) | payer OTHER, SELFPAY ==
[2024-06-01 07:03] VITALS: BP 130/87; PULSE 87; RESP 13; TEMP 36.9; O2SAT 99
[2024-06-01 07:13] LABS: Basophils Absolute Auto 0.1 K/mm3 (0.0-0.1); Basophils Percent Auto 0.7 % (0.2-1.2); Eosinophils Absolute Auto 0.9 K/mm3 (0-0.3); Eosinophils Percent Auto 9.7 % (0-4.4); Hematocrit 46.4 % (37.0-47.0); Hemoglobin 15.9 g/dL (12.0-15.0); Immature Granulocyte Absolute 0.03 K/mm3 (0.00-0.031); Immature Granulocyte Percent A 0.3 % (0-0.5); Lymphocytes Absolute Auto 1.94 K/mm3 (0.9-3.2); Lymphocytes Percent Auto 21.9 % (18.3-44.2); Mean Corpuscular HGB Conc 34.3 g/dl (32-36); Mean Corpuscular Hemoglobin 30.8 pg (26-34); Mean Corpuscular Volume 89.7 fl (80-100); Mean Platelet Volume 10.2 fl (7.4-10.4); Monocytes Absolute Auto 0.8 K/mm3 (0.1-0.6); Monocytes Percent Auto 9.3 % (2.6-8.5); Neutrophils Absolute Auto 5.1 K/mm3 (1.3-6.7); Neutrophils Percent Auto 58.1 % (45.5-73.1); Platelet Count Result 320 k/mm3 (150-375); Red Blood Count 5.17 M/mm3 (4.2-5.4); White Blood Count 8.9 K/mm3 (4.5-10.0)
--- NOTE | 2024-06-01 07:18 | ED.NAVMDI ---
HPI - Nausea/Vomiting/Diarrhea General Chief complaint: Nausea/Vomiting/Diarrhea Stated complaint: stomach flu like symptoms-n/v/dizziness Time Seen by Provider: 06/01/24 07:12 Source: patient and family Mode of arrival: ambulatory Limitations: no limitations History of Present Illness HPI Narrative: 29 YEARS OLD WHITE FEMALE CAME TO THE ED BY PRIVATE CAR COMPLAINING OF NAUSEA, VOMITING AND DIARRHEA STARTED 48 HOURS AGO. PATIENT REPORTS VOMITING MAXIMUM 6 TIMES A DAY, DIARRHEA STARTED YESTERDAY MAXIMUM 5 TIME. CURRENTLY COMPLAINING OF HEADACHE AND BODY ACHES. PATIENT REPORTED THAT ALL HER FAMILY HAVING SIMILAR SYMPTOMS INCLUDING ADULT AND KIDS. SHE DENIES ANY RESPIRATORY SYMPTOMS. Related Data Home Medications ?Medication ?Instructions ?Recorded ?Confirmed ?Last Taken ?Type fluticasone furoate 200 1 inh inhalation DAILY 12/26/19 04/08/24 07/23/23 History mcg-vilanterol 25 mcg/dose inhalation powder (Breo Ellipta) etonogestrel 0.12 mg-ethinyl 1 vag ring vaginal DAILY 06/15/22 04/08/24 Unknown History estradiol 0.015 mg/24 hr vaginal ring (EluRyng) albuterol sulfate 90 mcg/actuation 2 puff inhalation DIRECTED 07/05/23 04/08/24 Unknown History aerosol inhaler sertraline 100 mg tablet 150 mg PO DAILY 07/23/23 04/08/24 07/23/23 History Allergies Allergy/AdvReac Type Severity Reaction Status Date / Time No Known Allergies Allergy Verified 04/08/24 09:30 Review of Systems Review of Systems: All systems reviewed & are unremarkable except as noted in HPI and below PMFSH Past Medical History Medical History Wears hearing aid in both ears Other prophylactic gland removal Anxiety Asthma Migraines Social History Social History Smoking status: Former smoker Living arrangements: with family Gender identity (if verbalized by the patient): Female Exam Narrative: GENERAL APPEARANCE: WELL-DEVELOPED, WELL-NOURISHED SKIN: NORMAL COLOR HEAD: NORMOCEPHALIC, NONTRAUMATIC EYES: CLEAR CONJUNCTIVA ENT: OROPHARYNX NORMAL, EARS NORMAL, NOSE NORMAL NECK: SUPPLE, NONTENDER CHEST AND RESPIRATORY: AIRWAY PATENT, NO RESPIRATORY DISTRESS, NO ACCESSORY MUSCLE USE HEART: REGULAR RATE/RHYTHM ABDOMEN: SOFT, NONTENDER, NO ORGANOMEGALY, QUIET BOWEL SOUNDS VASCULAR: NORMAL PERIPHERAL PULSES, NORMAL CAPILLARY REFILL. MUSCULOSKELETAL: NORMAL RANGE OF MOTION, NONTENDER BACK NEUROLOGIC: ALERT AND ORIENTED ?3, HOME HEALTH MANAGER IS NORMAL TESTED, NO GROSS MOTOR DEFICIT Course Vital Signs Vital signs: Vital Signs Temperature 36.9 C 06/01/24 07:03 Pulse Rate 87 06/01/24 07:03 Respiratory Rate 13 06/01/24 07:03 Blood Pressure 130/87 06/01/24 07:03 Pulse Oximetry 99 06/01/24 07:03 Temperature 36.9 C 06/01/24 07:03 Pulse Rate 90 06/01/24 07:59 Respiratory Rate 19 06/01/24 07:59 Blood Pressure 110/84 06/01/24 07:59 Pulse Oximetry 97 06/01/24 07:59 MDM - Nausea/Vomiting/Diarrhea MDM Narrative Medical decision making narrative: PATIENT CAME TO THE ED WITH VIRAL GASTROENTERITIS LIKE SYMPTOMS VITAL SIGNS ARE STABLE PHYSICAL EXAMINATION UNREMARKABLE DIFFERENTIAL DIAGNOSIS INCLUDE VIRAL GASTROENTERITIS, ELECTROLYTE IMBALANCE, DEHYDRATION, URINARY TRACT INFECTION BLOOD WORKUP TODAY INCLUDES CBC, CMP SHOWED INSIGNIFICANT ABNORMALITY URINALYSIS SHOWED EVIDENCE OF INFECTION PATIENT TESTED NEGATIVE FOR FLU, RSV AND COVID DISCHARGED WITH VIRAL GASTROENTERITIS AND URINARY TRACT INFECTION DISCHARGED ON MACROBID AND ZOFRAN THE PT WAS DISCHARGED TO HOME.THE PT,S CONDITION UPON DISCHARGE WAS FAIR,EDUCATION WAS PROVIDED TO THE PT IN REFERENCE TO THE FINAL IMPRESSION,DISCHARGE STUDY RESULTS,TREATMENT,PROGNOSIS AND NEED FOR FOLLOW UP . Differential Diagnosis Differential diagnosis: Likely gastroenteritis and dehydration Medical Records Attestation: I reviewed the patient's medical records. Lab Data Attestation: I reviewed the patient's lab results. 06/01/24 07:04 06/01/24 07:04 Labs: Lab Results 06/01/24 06/01/24 06/01/24 Range/Units 07:04 07:27 07:30 WBC 8.9 (4.5-10.0) K/mm3 RBC 5.17 (4.2-5.4) M/mm3 Hgb 15.9 H (12.0-15.0) g/dL Hct 46.4 (37.0-47.0) % MCV 89.7 (80-100) fl MCH 30.8 (26-34) pg MCHC 34.3 (32-36) g/dl RDW 13.0 (11.5-14.5) % Plt Count 320 (150-375) k/mm3 MPV 10.2 (7.4-10.4) fl Immature Gran % (Auto) 0.3 (0-0.5) % Neut % (Auto) 58.1 (45.5-73.1) % Lymph % (Auto) 21.9 (18.3-44.2) % [facility] % (Auto) 9.3 H (2.6-8.5) % Eos % (Auto) 9.7 H (0-4.4) % Baso % (Auto) 0.7 (0.2-1.2) % Lymph # (Auto) 1.94 (0.9-3.2) K/mm3 [facility] # (Auto) 0.8 H (0.1-0.6) K/mm3 Eos # (Auto) 0.9 H (0-0.3) K/mm3 Baso # (Auto) 0.1 (0.0-0.1) K/mm3 Abs Immat Gran (auto) 0.03 (0.00-0.031) K/mm3 Absolute Neuts (auto) 5.1 (1.3-6.7) K/mm3 Absolute Nucleated RBC 0.000 (0.0-0.012) K/mm3 Nucleated RBC % 0.0 (0.0-0.2) % Sodium 138 (137-145) mmol/L Potassium 3.6 (3.4-5.0) mmol/L Chloride 106 (98-107) mmol/L Carbon Dioxide 22 (22-30) mmol/L Anion Gap 10 (4-12) mmol/L BUN 12 (7-17) mg/dL Creatinine 0.79 (0.7-1.0) mg/dL Estim Creat Clear Calc Not Reportable Estimated GFR > 60 (59 - ) Glucose 112 H (65-110) mg/dL Calcium 8.8 (8.4-10.2) mg/dL Total Bilirubin 0.7 (0.2-1.3) mg/dL AST 22 (14-36) U/L ALT 25 (6-35) U/L Alkaline Phosphatase 85 (38-126) U/L Total Protein 7.0 (6.3-8.2) g/dL Albumin 3.9 (3.5-5.1) g/dL Lipase 95 (23-300) U/L Urine Color Dark yellow (Yellow) Urine Appearance Cloudy H (Clear) Urine pH 5.5 (5.0-9.0) Ur Specific [place] 1.036 H (1.001-1.035) Urine Protein 1+ H (Negative) mg/dL Urine Glucose (UA) Negative (Negative) mg/dL Urine Ketones Trace H (Negative) mg/dL Ur Blood (Man) 2+ H (Negative) Urine Nitrate Negative (Negative) Urine Bilirubin 1+ H (Negative) Urine Urobilinogen 1.0 (<2.0) mg/dL Add Ur Microanalysis Reviewed Leukocyte Esterase Rfl 2+ H (Negative) PAGE/UL Urine RBC 3-5 H (0-2) /hpf Urine WBC 51-100 H (0-3) /hpf Ur Squamous Epith Cells Many H (Few) /hpf Urine Bacteria 4+ H /hpf Urine Casts 0-2 POC Urine HCG, Qual (Negative) Influenza A (RT-PCR) Negative (Negative) Influenza B (RT-PCR) Negative (Negative) RSV (RT-PCR) Negative (Negative) SARS-CoV-2 RNA (RT-PCR) Negative (Negative) 06/01/24 Range/Units 07:35 WBC (4.5-10.0) K/mm3 RBC (4.2-5.4) M/mm3 Hgb (12.0-15.0) g/dL Hct (37.0-47.0) % MCV (80-100) fl MCH (26-34) pg MCHC (32-36) g/dl RDW (11.5-14.5) % Plt Count (150-375) k/mm3 MPV (7.4-10.4) fl Immature Gran % (Auto) (0-0.5) % Neut % (Auto) (45.5-73.1) % Lymph % (Auto) (18.3-44.2) % [place] % (Auto) (2.6-8.5) % Eos % (Auto) (0-4.4) % Baso % (Auto) (0.2-1.2) % Lymph # (Auto) (0.9-3.2) K/mm3 [facility] # (Auto) (0.1-0.6) K/mm3 Eos # (Auto) (0-0.3) K/mm3 Baso # (Auto) (0.0-0.1) K/mm3 Abs Immat Gran (auto) (0.00-0.031) K/mm3 Absolute Neuts (auto) (1.3-6.7) K/mm3 Absolute Nucleated RBC (0.0-0.012) K/mm3 Nucleated RBC % (0.0-0.2) % Sodium (137-145) mmol/L Potassium (3.4-5.0) mmol/L Chloride (98-107) mmol/L Carbon Dioxide (22-30) mmol/L Anion Gap (4-12) mmol/L BUN (7-17) mg/dL Creatinine (0.7-1.0) mg/dL Estim Creat Clear Calc Estimated GFR (59 - ) Glucose (65-110) mg/dL Calcium (8.4-10.2) mg/dL Total Bilirubin (0.2-1.3) mg/dL AST (14-36) U/L ALT (6-35) U/L Alkaline Phosphatase (38-126) U/L Total Protein (6.3-8.2) g/dL Albumin (3.5-5.1) g/dL Lipase (23-300) U/L Urine Color (Yellow) Urine Appearance (Clear) Urine pH (5.0-9.0) Ur Specific [place] (1.001-1.035) Urine Protein (Negative) mg/dL Urine Glucose (UA) (Negative) mg/dL Urine Ketones (Negative) mg/dL Ur Blood (Man) (Negative) Urine Nitrate (Negative) Urine Bilirubin (Negative) Urine Urobilinogen (<2.0) mg/dL Add Ur Microanalysis Leukocyte Esterase Rfl (Negative) PAGE/UL Urine RBC (0-2) /hpf Urine WBC (0-3) /hpf Ur Squamous Epith Cells (Few) /hpf Urine Bacteria /hpf Urine Casts POC Urine HCG, Qual Negative (Negative) Influenza A (RT-PCR) (Negative) Influenza B (RT-PCR) (Negative) RSV (RT-PCR) (Negative) SARS-CoV-2 RNA (RT-PCR) (Negative) Critical Care Time Critical Care Time Critical Care Time: No Discharge Plan Discharge Clinical Impression: Viral gastroenteritis, Urinary tract infection Patient Disposition: Home, Self-Care Condition: Improved Instructions: Antibiotic Form, Urinary Tract Infection in Women (DC), Gastroenteritis (ED) Additional Instructions: RETURN IF SYMPTOMS ARE WORSENING , CALL YOUR FAMILY PHYSICIAN FOR APPOINTMENT, TAKE TYLENOL NEEDED FOR ACHES AND PAIN, CONTINUE HOME MEDICATIONS. Patient Language: Divehi Prescriptions: New nitrofurantoin monohyd/m-cryst [Macrobid] 100 mg capsule 100 mg PO Q12H 5 Days Qty: 10 0RF Rx Instructions: must administer with a meal/food ondansetron HCl 4 mg tablet 4 mg PO Q4H Qty: 10 0RF Rx Instructions: 1st dose 1-2 hr before radiation No Action etonogestrel-ethinyl estradiol [EluRyng] 0.12-0.015 mg/24 hr ring 1 vag ring VAGINAL DAILY sertraline 100 mg tablet 150 mg PO DAILY albuterol sulfate 90 mcg/actuation HFA aerosol inhaler 2 puff INHALATION DIRECTED fluticasone furoate-vilanterol [Breo Ellipta] 200-25 mcg/dose blister with device 1 inh INHALATION DAILY Follow-up/Referrals: Brynn,LINDY Browne [Primary Care Provider] - Stand Alone Forms: Work/School Release IP
[2024-06-01] MEDS: ONDANSETRON INJ 4 MG/2 ML VIAL IV PUSH (07:31)
[2024-06-01] MEDS: SODIUM CHLORIDE 0.9% IV 1,000 ML 999 ML IV CONT ×2 (07:32)
[2024-06-01 07:37] LABS: BEDSIDEPREGUCG Negative (Negative)
[2024-06-01 07:42] LABS: Alanine Aminotransferase 25 U/L (6-35); Albumin Level 3.9 g/dL (3.5-5.1); Alkaline Phosphatase 85 U/L (38-126); Anion Gap 10 mmol/L (4-12); Aspartate Amino Transferase 22 U/L (14-36); Bilirubin,Total 0.7 mg/dL (0.2-1.3); Blood Urea Nitrogen 12 mg/dL (7-17); Calcium 8.8 mg/dL (8.4-10.2); Carbon Dioxide 22 mmol/L (22-30); Chloride 106 mmol/L (98-107); Estimated Glomerular Filt Rate > 60; Glucose 112 mg/dL (65-110); Lipase 95 U/L (23-300); Potassium 3.6 mmol/L (3.4-5.0); Sodium 138 mmol/L (137-145)
[2024-06-01] MEDS: KETOROLAC 30 MG/ML VIAL (*BKC) IV PUSH (07:52)
[2024-06-01 07:59] VITALS: BP 110/84; PULSE 90; RESP 19; O2SAT 97
[2024-06-01 08:15] LABS: Add Urine Microscopic? YES; Appearance Urine Cloudy (Clear); Bacteria Urine 4+ /hpf; Bilirubin Urine 1+ (Negative); Blood Urine 2+ (Negative); Color Urine Dark Yellow (Yellow); Glucose Urine UA Negative (Negative); Ketones Urine Trace mg/dL (Negative); Leukocyte Esterase Ur 2+ LEU/UL (Negative); Need Manual Microscopic Reviewed; Nitrate Urine Negative (Negative); Non Pathogenic Casts 0-2; Protein Urine 1+ mg/dL (Negative); Specific Grav Ur 1.036 (1.001-1.035); Squamous Epithelial Cell Urine Many /hpf (Few); WBC Urine 51-100 /hpf (0-3); pH Urine 5.5 (5.0-9.0)
[2024-06-01 08:34] LABS: Influenza A QL RT-PCR Negative (Negative); Influenza B QL RT-PCR Negative (Negative); RSV RNA, RT-PCR Negative (Negative); SARS-CoV-2 RNA PCR Negative (Negative)
[2024-06-01 09:17] VITALS: BP 115/81; PULSE 83; RESP 17; O2SAT 97
== END 2024-06-01 09:19 | disposition home or self-care (01) ==
PROVIDERS: Emergency Medicine; Emergency Provider Emergency Medicine; PCP Nurse Practitioner Family
DX: A08.4 Viral intestinal infection, unspecified (principal); N39.0 Urinary tract infection, site not specified; Z20.822 Contact with and (suspected) exposure to COVID-19; F41.9 Anxiety disorder, unspecified; J45.909 Unspecified asthma, uncomplicated
CPT/HCPCS: 36415; 80053; 81001; 81025; 83690; 85025; 87086; 87637; 96361; 96365; 96375; 99284; J1885; J2405; J7030